=== PATIENT | male | born 1940 | race Caucasian/White ===

== ENCOUNTER 2016-06-23 05:42 | Inpatient (IN) ==
[2016-06-08 15:30] LABS: Basophils % 0.7 % (0.0-0.8); Eosinophils # 0.2 10*3/uL (0.0-0.87); Eosinophils % 4.5 % (0.00-10.9); Hematocrit 37.2 VOL% (42.0-52.0); Hemoglobin 12.9 GM/DL (14.0-18.0); Immature Granulocytes % 0.2 %; Immature Granulocytes Absolute 0.01 #; Lymphocytes # 1.6 10*3/uL (1.4-4.0); Lymphocytes % 37.6 % (21.2-54.2); Mean Corpuscular HGB Conc 34.7 GM/DL (32-36); Mean Corpuscular Hemoglobin 33 PG (27-34); Mean Corpuscular Volume 95.6 FL (87-102); Mean Platelet Volume 11.3 FL (9.6-12.0); Monocytes # 0.6 10*3/uL (0.11-0.8); Monocytes % 13.4 % (1.7-12.7); Neutrophils # 1.9 10*3/uL (1.4-7.4); Neutrophils % 43.6 % (38.7-73.9); Platelet Count 147 10*3/uL (130-400); Red Blood Count 3.89 10*6/uL (3.8-5.5); Red Cell Distribution Width 11.9 % (9.3-17.3); White Blood Count 4.3 10*3/uL (4.5-13.71)
[2016-06-08 15:41] LABS: PT Patient Result 10.6 SECS; Partial Thromboplastin Time 26.1 SECS (0-40)
[2016-06-08 15:58] LABS: Albumin 3.8 G/DL (3.4-5.0); Bilirubin,Total 0.5 MG/DL (0.2-1.0); Calcium 8.4 MG/DL (8.5-10.1); Osmolality,Calculated 293.7 MOS/KG (273-304); Potassium 4.2 MMOL/L (3.5-5.1); Total Protein 6.7 G/DL (6.4-8.3)
--- NOTE | 2016-06-08 16:00 | XRay Report ---
Exam: Chest 2 views Date: June 08, 2016 at 3:50 PM Comparison: Chest one view portable December 11, 2015 Reason: Preoperative respiratory evaluation Findings: The cardiac silhouette is normal in size, but the patient is status post sternotomy. There is minimal atelectasis or scarring at the lung bases. There is also chronic blunting of the left costophrenic angle, which may be related to scarring. No pneumothorax is identified. No acute osseous process is seen. Impression: Minimal atelectasis or scarring at the lung bases and chronic blunting of the left costophrenic angle. PROCEDURE INTERPRETED AT [facility] [place] DEPARTMENT OF RADIOLOGY Final Report Signed by: Dr. Tulio Cuenca
[2016-06-08 16:07] LABS: Apearance,Urine CLEAR (Clear); Bilirubin,Urine Negative (Negative); Blood, Urine Negative (Negative); Glucose,Urine (UA) Negative (Negative); Hyaline Casts,Urine 29 /LPF (0-3); Ketones,Urine Negative (Negative); Mucus,Urine Occasional /LPF (Occasional); Nitrite,Urine Negative (Negative); Protein,Urine Negative; RBC,Urine 1 /HPF (0-4); Squamous Epithelial Cell,Urine Occasional /HPF (0-10); Urine Color Yellow (Yellow); Urine Specific Gravity 1.025 (1.001-1.035); Urine Urobilinogen < 2.0 EU/DL (0.2-1.0); WBC,Urine 1 /HPF (0-6)
[2016-06-23] MEDS ORDERED: VANCOMYCIN INJ 1,000 MG in SODIUM CHLORIDE 0.9% 250 ML IV ONE (06:00)
[2016-06-23] MEDS ORDERED: VANCOMYCIN 1,000 MG VIAL ONE (06:10)
[2016-06-23] MEDS ORDERED: SODIUM CHLORIDE 0.9% 100 ML IV ONE (06:10)
[2016-06-23] MEDS ORDERED: ceFAZolin 1,000 MG VIAL ONE (06:10)
[2016-06-23] MEDS: LACTATED RINGERS 1,000 ML IV SCH (06:19)
[2016-06-23] MEDS ORDERED: LIDOCAINE 2% 5 ML VIAL ONE (07:06)
[2016-06-23] MEDS ORDERED: ONDANSETRON 4 MG/2 ML VIAL ONE (07:06)
[2016-06-23] MEDS ORDERED: PROPOFOL 200 MG/20 ML VIAL IV ONE (07:06)
--- NOTE | 2016-06-23 07:11 | History and Physical Update ---
History and Physical Update - History and Physical H&P was reviewed, the patient examined and there: are no changes in the patients condition since last H&P was completed.
[2016-06-23] MEDS ORDERED: HYDROmorphone 2 MG/1 ML VIAL IV PRN (07:12)
[2016-06-23] MEDS ORDERED: PROMETHAZINE 25 MG/1 ML VIAL IM PRN (07:12)
[2016-06-23] MEDS ORDERED: diphenhydrAMINE CAP 25 MG CAPSULE PO PRN (07:12)
[2016-06-23] MEDS ORDERED: ONDANSETRON 4 MG/2 ML VIAL IV PRN (07:12)
[2016-06-23] MEDS ORDERED: MAGNESIUM HYDROXIDE SUSP 30 ML UDCUP PO PRN (07:12)
[2016-06-23] MEDS ORDERED: DEXTROSE 50% 25 GM/50 ML VIAL IV PRN (07:15)
[2016-06-23] MEDS ORDERED: GLUCAGON 1 MG VIAL IM PRN (07:15)
[2016-06-23] MEDS ORDERED: TRANEXAMIC ACID 1,000 MG/10 ML VIAL IV ONE (07:36)
[2016-06-23] MEDS ORDERED: ROPIVACAINE 0.5% 30 ML VIAL ONE (08:50)
[2016-06-23] MEDS ORDERED: MIDAZOLAM 2 MG/2 ML VIAL ONE (08:50)
[2016-06-23] MEDS ORDERED: ACETAMINOPHEN 1,000 MG/100 ML VIAL IV ONE (08:50)
[2016-06-23] MEDS ORDERED: fentaNYL 100 MCG/2 ML VIAL ONE (08:50)
[2016-06-23] MEDS ORDERED: HYDROmorphone PCA 30 MG/30 ML SYRINGE IV ONE (09:35)
[2016-06-23] MEDS: HYDROmorphone PCA 30 MG/30 ML SYRINGE IV SCH (09:38)
--- NOTE | 2016-06-23 09:38 | XRay Report ---
XR knee 2V RT Indication: Knee arthroplasty Comparison: 25 April 2013 Findings: Knee arthroplasty components appear in good position. No periprosthetic fractures are seen. Postsurgical changes are present the overlying soft tissues. Impression: Knee arthroplasty appears within normal limits. PROCEDURE INTERPRETED AT [facility] DEPARTMENT OF RADIOLOGY Final Report Signed by: Dr. Wilber Reid
--- NOTE | 2016-06-23 12:46 | Anesthesia ---
Anesthesia Procedures - Nerve Blocks Main Anesthetic: spinal anesthesia block Location: PACU Position: supine Type of Block: Right: Femoral (22 g 3 1/2 needle) Patinet Consent: Patinet consented for above nerve block., Risks and benefits were discussed with patient,including infection,, bleeding,injury to surrounding structures, seizure, temporary nerve, Patient understands and accepts potential risks/benefits and agrees to, proceed. ASA Monitors on: pulse oximetry, EKG, BP cuff, oxygen via Local Anesthetic: 0.5% Ropivicaine (30cc 0.2 percent naropin ), other Ultrasound Used to: Visualize Femoral Nerve Interscalene / Femoral BLK: Visualize local anesthetic spread Nerve Stimulator used: Yes Inject slowly in 5cc increments with:: Negative aspitation of heme, Paresthesia +/= Patient vitals signs stable throughout procedure.: Patient tolertaed the procedure well with no apparent complications.
--- NOTE | 2016-06-23 13:15 | Operative Note ---
DATE: 06/23/2016 PREOPERATIVE DIAGNOSIS: OSTEOARTHRITIS, RIGHT KNEE. POSTOPERATIVE DIAGNOSIS: SAME. OPERATIVE PROCEDURE: Right total knee ([place]). SURGEON: Daniel Montanez Jr., MD MAGNETO REPAIRER: Dr. Walker ANESTHESIA: Spinal. INDICATION: A 76-year-old white male with longstanding degenerative osteoarthritis to his right kne e. He has maximized conservative treatment for a number of years, including medications and injecti ons. He presents today for elective right total knee. OPERATIVE PROCEDURE: The patient was taken to the operating room and under spinal anesthetic, the r ight lower extremity was prepped and draped in the usual sterile manner. He received Vancomycin and Ancef preoperatively. The limb was elevated, exsanguinated, and tourniquet inflated to 275 mmHg. A midline incision was made over the right knee. A medial peripatellar arthrotomy was performed. Int ramedullary alignment guide was used to make the appropriate cuts about the distal femur and proxima l tibia after revealing severe tricompartmental changes. The femur sized to a 5, the tibia to a 6. An 8-millimeter fixed bearing spacer selected. The PCL retained. The patellar resurfaced with a 38 -button. After removal of the trial components, and the knee irrigated and all three components were cemented into place. After the cement hardened, the wound was closed over two 1/8 inch Hemovac drai ns in standard fashion using #1 Vicryl for the arthrotomy, 2-0 Vicryl for the subcutaneous layer. St aples for skin. Sterile dressing was applied. Tourniquet time 37 minutes. Drains times 2. Counts c orrect. He was taken to the recovery room in stable condition.
[2016-06-23] MEDS: INSULIN REGULAR 100 UNIT/ML SUBCUT SCH ×5 (13:22→22:34)
[2016-06-23] MEDS: DOCUSATE SODIUM 100 MG CAPSULE PO SCH ×2 (13:30→22:19)
[2016-06-23] MEDS: ASPIRIN EC 81 MG TABLET PO SCH (13:31)
[2016-06-23] MEDS: glipiZIDE 10 MG TABLET PO SCH ×2 (13:31→22:18)
[2016-06-23] MEDS: valACYclovir 500 MG TABLET PO SCH (13:31)
[2016-06-23] MEDS: TAMSULOSIN 0.4 MG CAPSULE PO SCH (13:31)
[2016-06-23] MEDS: LISINOPRIL/HCTZ 20-12.5 MG TABLET PO SCH (13:32)
[2016-06-23] MEDS: GABAPENTIN 600 MG TABLET PO SCH ×3 (13:32→22:19)
[2016-06-23] MEDS: ATORVASTATIN 10 MG TABLET PO SCH (13:32)
[2016-06-23] MEDS: metFORMIN 850 MG TABLET PO SCH ×2 (13:33→21:22)
--- NOTE | 2016-06-23 14:15 | Cardiology Consult Note ---
Erick Barker April RN, am scribing for, and in the presence of, Brian Foster MD 14:15. Assessment and Plan - Time spent with patient Time spent with patient: Greater than 30 minutes (1) CAD (coronary artery disease) Status: Chronic Assessment and plan: He is clinically well compensated. Continue his usual outpatient medical management. Current Visit: No (2) History of coronary artery bypass graft Status: Chronic Assessment and plan: CABG in 2008 with ANAND to LAD and SVG to [facility]. Current Visit: No (3) Paroxysmal a-fib Status: Chronic Current Visit: No (4) Dyslipidemia Status: Chronic Assessment and plan: He takes Lipitor 10 mg dly. Current Visit: No (5) HTN (hypertension) Status: Chronic Assessment and plan: Pressures have been stable. He takes Lisinopril/HCTZ 20/12.5 dly. Current Visit: No History of Present Illness - Data of Consult Patient: known to practice within the last 3 years Consult date: 06/23/16 Requesting Physician: Daniel Montanez Jr. - Consult Narrative Reason for consult: follow postop History of present illness: Mr. Costa is a 76 year old male who is followed routinely by Dr. Jones with a history of CAD, DM, HTN, PAfib, and GERD. Past surgical history includes left knee scope, cataract surgery, back, and CABG. CABG was done in 2008 and with ANAND to LAD and SVG to [facility]. He was last cathed in 2009 with patent grafts and a patent RCA. He had a stress test done at Dr. Jones's office in May in preparation for this surgery that was read as normal with low risk for surgery. Family history includes [place] in mother and father and HTN in mother. He had right knee replacement with Dr. Montanez today. Dressing to right lower extremity dry and intact. He denies any chest pain, shortness of breath, or palpitations. He is not on telemetry, but heart sounds regular. According to vital sign chart, heart rates have been in the 60's with pressures in 110/70 range. Current Medications Acetaminophen/Hydrocodone Bitart ([place] 7.5-325) 2 tablet PO Q4H PRN PRN Reason: Moderate Pain unrelieved by 1 Acetaminophen/Hydrocodone Bitart ([place] 7.5-325) 1 tablet PO Q4H PRN PRN Reason: pain Aspirin () 81 mg PO DAILY [facility] Atorvastatin Calcium (Lipitor) 10 mg PO DAILY [facility] Dextrose/Water (D50) 25 gm IV PRN PRN PRN Reason: Hypoglycemia with IV access Diphenhydramine HCl (Benadryl Cap) 25 mg PO Q6H PRN PRN Reason: Itching Docusate Sodium (Colace Cap) 100 mg PO BID [facility] Fondaparinux (Arixtra) 2.5 mg SUBCUT Q24H [facility] Gabapentin (Neurontin Cap/Tab) 600 mg PO TID [facility] Glipizide (Glucotrol) 10 mg PO BID [facility] Glucagon () 1 mg IM PRN PRN PRN Reason: Hypoglycemia w/o IV access Lisinopril/HCTZ (Prinzide 20-12.5) 1 tablet PO DAILY [facility] Hydromorphone HCl (Dilaudid Inj) 1 mg IV Q3H PRN PRN Reason: Pain Severe (8-10) Hydromorphone/Sodium Chloride (Dilaudid Fluxer) 30 mg IV BRASS ROLLER [facility] PRN Reason: Protocol Last Admin: 06/23/16 09:38 Dose: 30 mg Lactated Ringer's (Lr) 1,000 mls @ 50 mls/hr IV .Q20H [facility] Last Admin: 06/23/16 06:19 Dose: 20 mls/hr Cefazolin Sodium/Dextrose 2, (000 mg/ Premix) 50 mls @ 100 mls/hr IV Q8H [facility] Stop: 06/23/16 23:29 Insulin Human Regular (Humulin R) 0 unit SUBCUT ACHS [facility] PRN Reason: Protocol Insulin Isophane/Insulin Regular (Humulin 70/30) 40 unit SUBCUT BEDTIME [facility] Latanoprost (Xalatan) 1 drop LEFT EYE BEDTIME [facility] Magnesium Hydroxide (Milk Of Magnesia) 30 ml PO Q6H PRN PRN Reason: Constipation Metformin HCl (Glucophage) 850 mg PO BID [facility] Ondansetron HCl (Zofran Inj) 4 mg IV Q4H PRN PRN Reason: Nausea/Vomiting Promethazine HCl (Phenergan Inj) 25 mg IM Q6H PRN PRN Reason: Nausea/Vomiting Tamsulosin HCl (Flomax) 0.4 mg PO DAILY [facility] Temazepam (Restoril) 7.5 mg PO BEDTIME PRN PRN Reason: Sleep Valacyclovir HCl (Valtrex) 500 mg PO DAILY [facility] CC: Daniel Montanez Jr., MD - Home Medications and Allergies Home Medications: Home Medications Medication Instructions Recorded Confirmed Type Aspirin [Ecotrin] 81 mg PO DAILY 12/11/15 06/23/16 History Atorvastatin [Lipitor] 10 mg PO DAILY 12/11/15 06/23/16 History Gabapentin 600 mg PO TID 12/11/15 06/23/16 History Latanoprost [Latanoprost 0.005 % 1 drop LEFT EYE BEDTIME 12/11/15 06/23/16 History Oph Soln] Lisinopril/Hydrochlorothiazide 1 tablet PO DAILY 12/11/15 06/23/16 History [Lisinopril-Hctz 20-12.5 mg Tab] Metformin HCl 850 mg PO BID 12/11/15 06/23/16 History Tamsulosin HCl 0.4 mg PO DAILY 12/11/15 06/23/16 History Valacyclovir HCl [Valacyclovir] 500 mg PO DAILY 12/11/15 06/23/16 History glipiZIDE [Glipizide] 10 mg PO BID 12/11/15 06/23/16 History HYDROcodone/ACETAMIN 7.5-325 1 tablet PO Q4H PRN #40 tablet 12/12/15 06/23/16 Rx [[place] 7.5-325] Allergies/Adverse Reactions: Allergies Allergy/AdvReac Type Severity Reaction Status Date / Time No Known Allergies Allergy Verified 06/08/16 15:23 - Constitutional Constitutional: Present: as per HPI - EENT Eyes: Present: requires corrective lense. Absent: blurry vision Ears: Absent: decreased hearing, tinnitus Nose, mouth and throat: Absent: epistaxis, neck pain - Cardiovascular Cardiovascular: Absent: chest pain at rest, chest pain with activity, dyspnea, dyspnea on exertion, edema, radiating jaw, neck or arm pain, palpitations - Respiratory Respiratory: Absent: cough, hemoptysis, dyspnea on exertion - Gastrointestinal Gastrointestinal: Absent: abdominal pain, constipation, diarrhea, hematemesis, hematochezia, nausea, vomiting - Genitourinary Genitourinary: Absent: difficulty urinating, hematuria - Musculoskeletal Musculoskeletal: Present: arthralgias. Absent: back pain - Neurological Neurological: Absent: abnormal gait, abnormal speech, confusion, dizziness, frequent falls, syncope - Psychiatric Psychiatric: Absent: anxiety, confusion - Endocrine Endocrine: Absent: fatigue - Hematologic/Lymphatic Hematologic/Lymphatic: Absent: easy bleeding, easy bruising Medical,Surgical,& Family Hx - Medical History Cardio: History of: Cardiac Dysrhythmia (PAfib), CAD, Hypertension Neurology: History of: Peripheral Neuropathy HEENT: History of: Dental Problems (FULL SET) Endocrine: History of: Diabetes Mellitus (IDDM), Dyslipidemia Rheumatology: History of;: Rheumatoid Arthritis Gastrointestinal: History of: GERD, GI Problems (ulcers) - Surgical History Cardiac Surgeries: Sugical HX of: Cardiac Catheterization (most recent 2009), Cardiac Surgery (CABG 2008 ANAND to LAD and SVG to [facility]) HEENT Surgeries: Surgical HX of: Eye Surgery (CATARACT SURGERY BILATERAL) Orthopedic Surgeries: Surgical HX of;: Spinal Surgery (back), Total Knee Replacement - Family History Family History: Reports;: Family Heart Disease (mother and father), Family Hypertension (mother) - Social History Smoking Status: Former smoker (quit 40 years ago) Have you smoked in the last 12 months: No Frequency of Alcohol Use: None Type of Drug Use: None Marital Status: Lives With:: Alone Functional capacity: independent ambulation Physical Examination Vital Signs Temp Pulse Resp BP Pulse Ox 96.8 F L 79 20 131/82 96 06/23/16 06:29 06/23/16 06:29 06/23/16 06:29 06/23/16 06:29 06/23/16 06:29 General: Present: Appears Well, No Apparent Distress HEENT: Present: Mucus Membranes Moist Neck: Present: Supple Neck, Midline Trachea, No JVD/HJR Cardiac: Present: Reg Rate and Rhythm Lungs: Present: Normal Breath Sounds. Absent: Oxygen Neuro: Absent: Essential Tremor Abdomen: Present: Soft, Active Bowel Sounds, Non-Tender. Absent: Distended Skin: Present: Clear Musculoskeletal: Present: Normal Range of Motion Gait: Present: Normal Gait Extremities: Present: Normal Gait, No Edema, Normal Upper Extr. Pulses, Normal Lower Extr. Pulses, Other (RLE is bandaged from surgery) Result/EKG - Labs CBC & BMP: 06/08/16 15:16 06/08/16 15:16 Lab Results: I have reviewed the past 24 hour labs Labs: Laboratory Results - last 24 hr 06/23/16 06/23/16 06:18 06:18 POC Glucose 218 H Blood Type O NEGATIVE Antibody Screen Negative Cristian Barker Michael, MD, personally performed the services described in this documentation, ascribed by Radha Suarez RN in my presence, and it is both accurate and complete 415 .
[2016-06-23] MEDS: ceFAZolin 2,000 MG in PREMIX 1 EACH IV SCH ×2 (15:49→22:39)
--- NOTE | 2016-06-23 17:21 | Orthopedic Progress Note ---
Orthopedics - Subjective Interval history: Comfortable good pulse block wearing off instructed up in a.m. Exam - Constitutional Vitals: Period Temp Pulse Resp BP Sys/Adamson Pulse Ox Last 24 Hr 96.8 F-97.4 F 59-87 14-20 90-136/54-82 93-98 Results - Labs CBC & BMP: 06/08/16 15:16 06/08/16 15:16
[2016-06-23] MEDS: FONDAPARINUX 2.5 MG/0.5 ML SYRINGE SUBCUT SCH (22:19)
[2016-06-23] MEDS: LATANOPROST 0.005% OPH SOLN 2.5 ML BOTTLE LEFT EYE SCH (22:19)
[2016-06-23] MEDS: INSULIN NPH/REGULAR 70/30 100 UNIT/ML SUBCUT SCH (22:31)
[2016-06-24 05:36] LABS: Basophils % 0.4 % (0.0-0.8); Eosinophils # 0.2 10*3/uL (0.0-0.87); Hematocrit 35.1 VOL% (42.0-52.0); Hemoglobin 12.2 GM/DL (14.0-18.0); Immature Granulocytes % 0.5 %; Immature Granulocytes Absolute 0.05 #; Lymphocytes % 17.8 % (21.2-54.2); Mean Corpuscular HGB Conc 34.8 GM/DL (32-36); Mean Corpuscular Hemoglobin 33 PG (27-34); Mean Corpuscular Volume 95.1 FL (87-102); Mean Platelet Volume 11.3 FL (9.6-12.0); Monocytes # 1.1 10*3/uL (0.11-0.8); Monocytes % 10.3 % (1.7-12.7); Neutrophils # 7.7 10*3/uL (1.4-7.4); Platelet Count 159 10*3/uL (130-400); Red Blood Count 3.69 10*6/uL (3.8-5.5); Red Cell Distribution Width 12.1 % (9.3-17.3); White Blood Count 11.1 10*3/uL (4.5-13.71)
[2016-06-24 06:08] LABS: Calcium 8.3 MG/DL (8.5-10.1); Osmolality,Calculated 283.5 MOS/KG (273-304); Potassium 4.5 MMOL/L (3.5-5.1)
[2016-06-24] MEDS: metFORMIN 850 MG TABLET PO SCH ×2 (08:15→21:06)
[2016-06-24] MEDS: INSULIN REGULAR 100 UNIT/ML SUBCUT SCH ×4 (08:20→21:08)
[2016-06-24] MEDS: glipiZIDE 10 MG TABLET PO SCH ×2 (08:21→21:06)
[2016-06-24] MEDS: LISINOPRIL/HCTZ 20-12.5 MG TABLET PO SCH (08:22)
[2016-06-24] MEDS: TAMSULOSIN 0.4 MG CAPSULE PO SCH (08:22)
[2016-06-24] MEDS: GABAPENTIN 600 MG TABLET PO SCH ×3 (08:22→21:06)
[2016-06-24] MEDS: ATORVASTATIN 10 MG TABLET PO SCH (08:22)
[2016-06-24] MEDS: ASPIRIN EC 81 MG TABLET PO SCH (08:22)
[2016-06-24] MEDS: DOCUSATE SODIUM 100 MG CAPSULE PO SCH ×2 (08:22→21:06)
[2016-06-24] MEDS: valACYclovir 500 MG TABLET PO SCH (08:23)
--- NOTE | 2016-06-24 08:31 | Orthopedic Progress Note ---
Orthopedics - Subjective Interval history: Pain control control somewhat difficult takes Purdy at home. Drain is removed H &H stable ready to start PT we'll give the option of oxycodone instead of Purdy today to see if we can improve his pain control. Likely to need rehabilitation placement Exam - Constitutional Vitals: Period Temp Pulse Resp BP Sys/Adamson Pulse Ox Last 24 Hr 96.8 F-98.5 F 59-88 14-20 90-165/54-82 91-98 Results - Labs CBC & BMP: 06/24/16 04:48 06/24/16 04:48 Specialty Discharge - Follow Up or Referrals Follow up with: Yunior Justice Jr., MD [Physician] - 1 Month
--- NOTE | 2016-06-24 10:20 | Anesthesia ---
Anesthesia Post OP - Post Ansesthetic Evaluation Patient seen in post op: Yes Resp: within normal limits CV: within normal limits Mental: within normal limits Temp: within normal limits Nglx-Hs-Hhyuyeyen: within normal limits Nausea and Vomiting: within normal limits Pain: within normal limits
[2016-06-24] MEDS: oxyCODONE IR 5 MG TABLET PO PRN ×2 (11:39→21:06)
--- NOTE | 2016-06-24 12:18 | Pathology Report from [facility] ---
ACCESSION # : [id number] PATIENT NAME : Trudy Costa ORDERING DR : MEGHA SALMON JR, MD CLINICAL HX: RT knee osteoarthritis POST-OP DX: Same SPECIMEN INFO: RT knee bone & tissue GROSS DESCRIPTION: The specimen is received in formalin labeled with the patient 's name and consists of an aggregate of bone, cartilage and adipose measuring 6.0 x 15.4 cm. The articular surfaces are focally degenerative with areas of bony eburnation measuring up to 1.5 cm. Torch Straightener sections submitted in one cassette. DIAGNOSIS FOR TRUDY COSTA: RIGHT KNEE BONE & TISSUE, TOTAL REPLACEMENT: Osteoarthritis. SERVICE DATE: 06/23/2016 REPORT DATE: 06/24/2016 PATHOLOGIST: Tod Muhammad M.D. [facility]
[2016-06-24] MEDS: LACTATED RINGERS 1,000 ML IV SCH (14:32)
[2016-06-24] MEDS: HYDROmorphone PCA 30 MG/30 ML SYRINGE IV SCH (14:33)
--- NOTE | 2016-06-24 17:34 | Cardiology Progress Note ---
Erick Barker April RN, am scribing for, and in the presence of, Brian Foster MD 17:32. Assessment and Plan (1) Status post total knee replacement Status: Acute Current Visit: Yes (2) CAD (coronary artery disease) Status: Chronic Assessment and plan: Heart cath done in 2009 showed patent grafts and patent RCA. Current Visit: No (3) History of coronary artery bypass graft Status: Chronic Assessment and plan: CABG in 2008 with ANAND to LAD and SVG to [facility]. Current Visit: No (4) Paroxysmal a-fib Status: Chronic Current Visit: No (5) Dyslipidemia Status: Chronic Assessment and plan: He takes Lipitor 10 mg dly. Current Visit: No (6) HTN (hypertension) Status: Chronic Current Visit: No Cardiology - PN: Subj Interval history: Resting in bed in no acute distress. He is day 1 postop right knee replacement. He is complaining of pain to his right leg, dressing to right leg dry/intact. He denies any chest pain, shortness of breath, or palpitations. Current Medications Acetaminophen/Hydrocodone Bitart ([place] 7.5-325) 2 tablet PO Q4H PRN PRN Reason: Moderate Pain unrelieved by 1 Last Admin: 06/24/16 07:04 Dose: 2 tablet Acetaminophen/Hydrocodone Bitart ([place] 7.5-325) 1 tablet PO Q4H PRN PRN Reason: pain Last Admin: 06/24/16 04:58 Dose: 1 tablet Aspirin () 81 mg PO DAILY [facility] Last Admin: 06/23/16 13:31 Dose: Not Given Atorvastatin Calcium (Lipitor) 10 mg PO DAILY [facility] Last Admin: 06/23/16 13:32 Dose: Not Given Dextrose/Water (D50) 25 gm IV PRN PRN PRN Reason: Hypoglycemia with IV access Diphenhydramine HCl (Benadryl Cap) 25 mg PO Q6H PRN PRN Reason: Itching Docusate Sodium (Colace Cap) 100 mg PO BID [facility] Last Admin: 06/23/16 22:19 Dose: 100 mg Fondaparinux (Arixtra) 2.5 mg SUBCUT Q24H [facility] Last Admin: 06/23/16 22:19 Dose: 2.5 mg Gabapentin (Neurontin Cap/Tab) 600 mg PO TID [facility] Last Admin: 06/23/16 22:19 Dose: 600 mg Glipizide (Glucotrol) 10 mg PO BID [facility] Last Admin: 06/23/16 22:18 Dose: 10 mg Glucagon () 1 mg IM PRN PRN PRN Reason: Hypoglycemia w/o IV access Lisinopril/HCTZ (Prinzide 20-12.5) 1 tablet PO DAILY [facility] Last Admin: 06/23/16 13:32 Dose: Not Given Hydromorphone HCl (Dilaudid Inj) 1 mg IV Q3H PRN PRN Reason: Pain Severe (8-10) Hydromorphone/Sodium Chloride (Dilaudid Fire Apparatus Sprinkler Inspector) 30 mg IV IN STORE REPRESENTATIVE [facility] PRN Reason: Protocol Last Admin: 06/23/16 09:38 Dose: 30 mg Lactated Ringer's (Lr) 1,000 mls @ 50 mls/hr IV .Q20H [facility] Last Admin: 06/23/16 06:19 Dose: 20 mls/hr Insulin Human Regular (Humulin R) 0 unit SUBCUT ACHS [facility] PRN Reason: Protocol Last Admin: 06/23/16 22:34 Dose: Not Given Insulin Isophane/Insulin Regular (Humulin 70/30) 40 unit SUBCUT BEDTIME [facility] Last Admin: 06/23/16 22:31 Dose: Not Given Latanoprost (Xalatan) 1 drop LEFT EYE BEDTIME [facility] Last Admin: 06/23/16 22:19 Dose: 1 drop Magnesium Hydroxide (Milk Of Magnesia) 30 ml PO Q6H PRN PRN Reason: Constipation Metformin HCl (Glucophage) 850 mg PO BID [facility] Last Admin: 06/23/16 21:22 Dose: Not Given Ondansetron HCl (Zofran Inj) 4 mg IV Q4H PRN PRN Reason: Nausea/Vomiting Promethazine HCl (Phenergan Inj) 25 mg IM Q6H PRN PRN Reason: Nausea/Vomiting Tamsulosin HCl (Flomax) 0.4 mg PO DAILY [facility] Last Admin: 06/23/16 13:31 Dose: 0.4 mg Temazepam (Restoril) 7.5 mg PO BEDTIME PRN PRN Reason: Sleep Valacyclovir HCl (Valtrex) 500 mg PO DAILY [facility] Last Admin: 06/23/16 13:31 Dose: 500 mg Exam (Progress Note) - Constitutional Vitals: Period Temp Pulse Resp BP Sys/Adamson Pulse Ox Last 24 Hr 96.8 F-98.5 F 59-88 14-20 90-165/54-82 91-98 General appearance: no acute distress - Head Head exam: Present: normal inspection - Neck Neck exam: Absent: meningismus - Respiratory Respiratory exam: Present: clear to auscultation bilaterally. Absent: accessory muscle use, chest wall tenderness - Cardiovascular Cardiovascular exam: Present: regular rate and rhythm - GI/Abdominal GI/Abdominal exam: Present: normal bowel sounds, soft. Absent: distended, tenderness - Extremities Exam Extremities exam: Present: other (dressing to rle). Absent: edema - Neurological Exam Neurological exam: Present: alert, oriented X3 - Psychiatric Psychiatric exam: Present: other (in obvious pain) - Skin Skin exam: Present: warm, dry Result/EKG - Labs CBC & BMP: 06/24/16 04:48 06/24/16 04:48 Lab Results: I have reviewed the past 24 hour labs Labs: Laboratory Results - last 24 hr 06/23/16 06/23/16 06/23/16 13:11 15:55 20:01 WBC RBC Hgb Hct MCV MCH MCHC RDW Plt Count MPV Neut % (Auto) Lymph % (Auto) Cassia % (Auto) Eos % (Auto) Baso % (Auto) Neut # (Auto) Lymph # (Auto) Cassia # (Auto) Eos # (Auto) Baso # (Auto) Immature Gran % Nucleated RBC % Immature Gran # Nucleated RBCs # Sodium Potassium Chloride Carbon Dioxide Anion Gap BUN Creatinine GFR Calculation BUN/Creatinine Ratio Glucose POC Glucose 247 H 172 H 109 H Calculated Osmolality Calcium 06/24/16 06/24/16 06/24/16 04:48 04:48 07:01 WBC 11.1 RBC 3.69 L Hgb 12.2 L Hct 35.1 L MCV 95.1 MCH 33 MCHC 34.8 RDW 12.1 Plt Count 159 MPV 11.3 Neut % (Auto) 69.0 Lymph % (Auto) 17.8 L Cassia % (Auto) 10.3 Eos % (Auto) 2.0 Baso % (Auto) 0.4 Neut # (Auto) 7.7 H Lymph # (Auto) 2.0 Cassia # (Auto) 1.1 H Eos # (Auto) 0.2 Baso # (Auto) 0.0 Immature Gran % 0.5 Nucleated RBC % 0.0 Immature Gran # 0.05 Nucleated RBCs # 0.00 Sodium 139 Potassium 4.5 Chloride 102 Carbon Dioxide 27 Anion Gap 14.5 BUN 16 Creatinine 1.20 GFR Calculation 69 BUN/Creatinine Ratio 13.00 Glucose 198 H POC Glucose 205 H Calculated Osmolality 283.5 Calcium 8.3 L - EKG EKG results: interpreted by me Specialty Discharge - Follow Up or Referrals Follow up with: Yunior Justice Jr., MD [Physician] - 1 Month I, Brian Foster MD, personally performed the services described in this documentation, ascribed by Radha Suarez RN in my presence, and it is both accurate and complete 733 .
[2016-06-24] MEDS: INSULIN NPH/REGULAR 70/30 100 UNIT/ML SUBCUT SCH (21:06)
[2016-06-24] MEDS: FONDAPARINUX 2.5 MG/0.5 ML SYRINGE SUBCUT SCH (21:07)
[2016-06-24] MEDS: LATANOPROST 0.005% OPH SOLN 2.5 ML BOTTLE LEFT EYE SCH (21:09)
[2016-06-25] MEDS: TEMAZEPAM 7.5 MG CAPSULE PO PRN ×2 (00:11→20:50)
[2016-06-25] MEDS: oxyCODONE IR 5 MG TABLET PO PRN ×3 (04:56→14:51)
[2016-06-25 06:18] LABS: Basophils % 0.2 % (0.0-0.8); Eosinophils # 0.2 10*3/uL (0.0-0.87); Eosinophils % 1.4 % (0.00-10.9); Hematocrit 35.3 VOL% (42.0-52.0); Hemoglobin 11.8 GM/DL (14.0-18.0); Immature Granulocytes % 0.6 %; Immature Granulocytes Absolute 0.08 #; Lymphocytes # 2.6 10*3/uL (1.4-4.0); Lymphocytes % 18.5 % (21.2-54.2); Mean Corpuscular HGB Conc 33.4 GM/DL (32-36); Mean Corpuscular Hemoglobin 32 PG (27-34); Mean Corpuscular Volume 96.7 FL (87-102); Mean Platelet Volume 11.5 FL (9.6-12.0); Monocytes # 1.7 10*3/uL (0.11-0.8); Monocytes % 12.1 % (1.7-12.7); Neutrophils # 9.4 10*3/uL (1.4-7.4); Neutrophils % 67.2 % (38.7-73.9); Platelet Count 182 10*3/uL (130-400); Red Blood Count 3.65 10*6/uL (3.8-5.5); Red Cell Distribution Width 12.2 % (9.3-17.3)
--- NOTE | 2016-06-25 08:01 | Orthopedic Progress Note ---
Orthopedics - Subjective Interval history: Pain control better PT going slowly will need rehabilitation. H&H stable. Blood draws. Continue supportive care. Exam - Constitutional Vitals: Period Temp Pulse Resp BP Sys/Adamson Pulse Ox Last 24 Hr 97.8 F-98.5 F 70-105 18-20 90-134/57-86 89-100 Results - Labs CBC & BMP: 06/25/16 05:26 06/24/16 04:48 Specialty Discharge - Follow Up or Referrals Follow up with: Yunior Justice Jr., MD [Physician] - 1 Month
[2016-06-25] MEDS: INSULIN REGULAR 100 UNIT/ML SUBCUT SCH ×4 (08:08→20:53)
[2016-06-25] MEDS: HYDROmorphone PCA 30 MG/30 ML SYRINGE IV SCH (08:31)
[2016-06-25] MEDS: LACTATED RINGERS 1,000 ML IV SCH (08:32)
[2016-06-25] MEDS: LISINOPRIL/HCTZ 20-12.5 MG TABLET PO SCH (09:21)
[2016-06-25] MEDS: DOCUSATE SODIUM 100 MG CAPSULE PO SCH ×2 (09:21→20:50)
[2016-06-25] MEDS: ASPIRIN EC 81 MG TABLET PO SCH (09:21)
[2016-06-25] MEDS: GABAPENTIN 600 MG TABLET PO SCH ×3 (09:21→20:50)
[2016-06-25] MEDS: valACYclovir 500 MG TABLET PO SCH (09:21)
[2016-06-25] MEDS: TAMSULOSIN 0.4 MG CAPSULE PO SCH (09:21)
[2016-06-25] MEDS: metFORMIN 850 MG TABLET PO SCH ×2 (09:22→20:51)
[2016-06-25] MEDS: glipiZIDE 10 MG TABLET PO SCH ×2 (09:22→20:50)
[2016-06-25] MEDS: ATORVASTATIN 10 MG TABLET PO SCH (09:29)
--- NOTE | 2016-06-25 14:49 | Cardiology Progress Note ---
I, Radha Suarez RN, am scribing for, and in the presence of, Brian Foster MD 14:46. Assessment and Plan (1) Status post total knee replacement Status: Acute Assessment and plan: He is doing very well status post knee replacement. His cardiac status is well compensated. I'm going to drop off of his case at this time. Please feel free to call for any cardiac related issues. Current Visit: Yes (2) CAD (coronary artery disease) Status: Chronic Assessment and plan: Heart cath done in 2009 showed patent grafts and patent RCA. Current Visit: No (3) History of coronary artery bypass graft Status: Chronic Assessment and plan: CABG in 2008 with ANAND to LAD and SVG to OMB. Current Visit: No (4) Paroxysmal a-fib Status: Chronic Current Visit: No (5) Dyslipidemia Status: Chronic Assessment and plan: He takes Lipitor 10 mg dly. Current Visit: No (6) HTN (hypertension) Status: Chronic Assessment and plan: Pressures have been stable. He takes Lisinopril/HCTZ 20/12.5 dly. Current Visit: No Cardiology - PN: Subj Interval history: Resting in bed in no acute distress. He is day 2 postop right knee replacement , dressing dry and intact. He is doing very well postoperatively. He denies any chest pain, shortness of breath, or palpitations. Current Medications Acetaminophen/Hydrocodone Bitart ([place] 7.5-325) 2 tablet PO Q4H PRN PRN Reason: Moderate Pain unrelieved by 1 Last Admin: 06/24/16 07:04 Dose: 2 tablet Acetaminophen/Hydrocodone Bitart ([place] 7.5-325) 1 tablet PO Q4H PRN PRN Reason: pain Last Admin: 06/24/16 04:58 Dose: 1 tablet Aspirin () 81 mg PO DAILY [facility] Last Admin: 06/24/16 08:22 Dose: 81 mg Atorvastatin Calcium (Lipitor) 10 mg PO DAILY [facility] Last Admin: 06/24/16 08:22 Dose: 10 mg Dextrose/Water (D50) 25 gm IV PRN PRN PRN Reason: Hypoglycemia with IV access Diphenhydramine HCl (Benadryl Cap) 25 mg PO Q6H PRN PRN Reason: Itching Docusate Sodium (Colace Cap) 100 mg PO BID [facility] Last Admin: 06/24/16 21:06 Dose: 100 mg Fondaparinux (Arixtra) 2.5 mg SUBCUT Q24H [facility] Last Admin: 06/24/16 21:07 Dose: 2.5 mg Gabapentin (Neurontin Cap/Tab) 600 mg PO TID [facility] Last Admin: 06/24/16 21:06 Dose: 600 mg Glipizide (Glucotrol) 10 mg PO BID [facility] Last Admin: 06/24/16 21:06 Dose: 10 mg Glucagon () 1 mg IM PRN PRN PRN Reason: Hypoglycemia w/o IV access Lisinopril/HCTZ (Prinzide 20-12.5) 1 tablet PO DAILY [facility] Last Admin: 06/24/16 08:22 Dose: 1 tablet Hydromorphone HCl (Dilaudid Inj) 1 mg IV Q3H PRN PRN Reason: Pain Severe (8-10) Insulin Human Regular (Humulin R) 0 unit SUBCUT ACHS [facility] PRN Reason: Protocol Last Admin: 06/25/16 08:08 Dose: Not Given Insulin Isophane/Insulin Regular (Humulin 70/30) 40 unit SUBCUT BEDTIME [facility] Last Admin: 06/24/16 21:06 Dose: 40 unit Latanoprost (Xalatan) 1 drop LEFT EYE BEDTIME [facility] Last Admin: 06/24/16 21:09 Dose: 1 drop Magnesium Hydroxide (Milk Of Magnesia) 30 ml PO Q6H PRN PRN Reason: Constipation Metformin HCl (Glucophage) 850 mg PO BID [facility] Last Admin: 06/24/16 21:06 Dose: 850 mg Ondansetron HCl (Zofran Inj) 4 mg IV Q4H PRN PRN Reason: Nausea/Vomiting Oxycodone HCl (Roxicodone) 10 mg PO Q4H PRN PRN Reason: Pain Severe (8-10) Last Admin: 06/25/16 04:56 Dose: 10 mg Promethazine HCl (Phenergan Inj) 25 mg IM Q6H PRN PRN Reason: Nausea/Vomiting Tamsulosin HCl (Flomax) 0.4 mg PO DAILY [facility] Last Admin: 06/24/16 08:22 Dose: 0.4 mg Temazepam (Restoril) 7.5 mg PO BEDTIME PRN PRN Reason: Sleep Last Admin: 06/25/16 00:11 Dose: 7.5 mg Valacyclovir HCl (Valtrex) 500 mg PO DAILY [facility] Last Admin: 06/24/16 08:23 Dose: 500 mg Exam (Progress Note) - Constitutional Vitals: Period Temp Pulse Resp BP Sys/Adamson Pulse Ox Last 24 Hr 97.8 F-98.5 F 70-105 18-20 90-134/57-86 89-100 General appearance: no acute distress - Head Head exam: Present: normal inspection - Neck Neck exam: Absent: tenderness - Respiratory Respiratory exam: Present: accessory muscle use, chest wall tenderness, other ( coarse breath sounds) - Cardiovascular Cardiovascular exam: Present: regular rate and rhythm (not on tele, but sounds regular) - GI/Abdominal GI/Abdominal exam: Present: normal bowel sounds, soft. Absent: distended, tenderness - Extremities Exam Extremities exam: Present: other (dressing to right knee). Absent: edema - Neurological Exam Neurological exam: Present: alert, oriented X3 - Psychiatric Psychiatric exam: Present: normal mood - Skin Skin exam: Present: warm, dry Result/EKG - Labs CBC & BMP: 06/25/16 05:26 06/24/16 04:48 Lab Results: I have reviewed the past 24 hour labs Labs: Laboratory Results - last 24 hr 06/24/16 06/24/16 06/24/16 11:24 15:08 19:36 WBC RBC Hgb Hct MCV MCH MCHC RDW Plt Count MPV Neut % (Auto) Lymph % (Auto) [place] % (Auto) Eos % (Auto) Baso % (Auto) Neut # (Auto) Lymph # (Auto) [place] # (Auto) Eos # (Auto) Baso # (Auto) Immature Gran % Nucleated RBC % Immature Gran # Nucleated RBCs # POC Glucose 219 H 184 H 243 H 06/25/16 06/25/16 05:26 07:11 WBC 14.0 H RBC 3.65 L Hgb 11.8 L Hct 35.3 L MCV 96.7 MCH 32 MCHC 33.4 RDW 12.2 Plt Count 182 MPV 11.5 Neut % (Auto) 67.2 Lymph % (Auto) 18.5 L [place] % (Auto) 12.1 Eos % (Auto) 1.4 Baso % (Auto) 0.2 Neut # (Auto) 9.4 H Lymph # (Auto) 2.6 [place] # (Auto) 1.7 H Eos # (Auto) 0.2 Baso # (Auto) 0.0 Immature Gran % 0.6 Nucleated RBC % 0.0 Immature Gran # 0.08 Nucleated RBCs # 0.00 POC Glucose 66 L - EKG EKG results: interpreted by me Specialty Discharge - Follow Up or Referrals Follow up with: Daniel Montanez Jr., MD [Physician] - 07/27/16 8:45 am I, Brian Foster MD, personally performed the services described in this documentation, ascribed by Radha Suarez RN in my presence, and it is both accurate and complete [id number] .
[2016-06-25] MEDS: FONDAPARINUX 2.5 MG/0.5 ML SYRINGE SUBCUT SCH (20:52)
[2016-06-25] MEDS: INSULIN NPH/REGULAR 70/30 100 UNIT/ML SUBCUT SCH (20:52)
[2016-06-25] MEDS: LATANOPROST 0.005% OPH SOLN 2.5 ML BOTTLE LEFT EYE SCH (20:57)
[2016-06-26] MEDS: TEMAZEPAM 7.5 MG CAPSULE PO PRN ×2 (01:46→22:56)
[2016-06-26] MEDS: oxyCODONE IR 5 MG TABLET PO PRN ×2 (01:46→09:02)
[2016-06-26] MEDS: INSULIN REGULAR 100 UNIT/ML SUBCUT SCH ×4 (07:42→22:52)
[2016-06-26] MEDS: valACYclovir 500 MG TABLET PO SCH (09:02)
[2016-06-26] MEDS: GABAPENTIN 600 MG TABLET PO SCH ×3 (09:02→21:23)
[2016-06-26] MEDS: ATORVASTATIN 10 MG TABLET PO SCH (09:02)
[2016-06-26] MEDS: TAMSULOSIN 0.4 MG CAPSULE PO SCH (09:02)
[2016-06-26] MEDS: LISINOPRIL/HCTZ 20-12.5 MG TABLET PO SCH (09:02)
[2016-06-26] MEDS: glipiZIDE 10 MG TABLET PO SCH ×2 (09:02→21:23)
[2016-06-26] MEDS: metFORMIN 850 MG TABLET PO SCH ×2 (09:02→21:31)
[2016-06-26] MEDS: DOCUSATE SODIUM 100 MG CAPSULE PO SCH ×2 (09:02→21:24)
[2016-06-26] MEDS: ASPIRIN EC 81 MG TABLET PO SCH (09:02)
--- NOTE | 2016-06-26 10:10 | Orthopedic Progress Note ---
Assessment and Plan (1) History of knee replacement procedure of right knee Status: Acute Assessment and plan: POD#3 right TKA, cont care: PT, pain control, dvt prophy, d/c planning Current Visit: Yes Orthopedics - Subjective Interval history: no complaints. progressing well with PT Exam - Constitutional Vitals: Period Temp Pulse Resp BP Sys/Adamson Pulse Ox Last 24 Hr 96.7 F-98.3 F 75-107 18-20 101-139/63-71 92-96 General appearance: normal weight, no acute distress - Expanded Right Lower Knee exam: Present: normal inspection (dressing c/d/i, comp soft, sensation intact, pulses 2+, cap refill brisk) Results - Labs CBC & BMP: 06/25/16 05:26 06/24/16 04:48 Lab Results: I have reviewed the past 24 hour labs Specialty Discharge - Follow Up or Referrals Follow up with: Daniel Montanez Jr., MD [Physician] - 07/27/16 8:45 am
[2016-06-26] MEDS: FONDAPARINUX 2.5 MG/0.5 ML SYRINGE SUBCUT SCH (21:25)
[2016-06-26] MEDS: LATANOPROST 0.005% OPH SOLN 2.5 ML BOTTLE LEFT EYE SCH (21:31)
[2016-06-26] MEDS: INSULIN NPH/REGULAR 70/30 100 UNIT/ML SUBCUT SCH (22:51)
[2016-06-27] MEDS: INSULIN REGULAR 100 UNIT/ML SUBCUT SCH ×4 (08:16→21:30)
[2016-06-27] MEDS: metFORMIN 850 MG TABLET PO SCH ×2 (08:21→21:46)
[2016-06-27] MEDS: GABAPENTIN 600 MG TABLET PO SCH ×3 (08:21→21:41)
[2016-06-27] MEDS: ASPIRIN EC 81 MG TABLET PO SCH (08:21)
[2016-06-27] MEDS: ATORVASTATIN 10 MG TABLET PO SCH (08:21)
[2016-06-27] MEDS: DOCUSATE SODIUM 100 MG CAPSULE PO SCH ×2 (08:22→21:43)
[2016-06-27] MEDS: valACYclovir 500 MG TABLET PO SCH (08:22)
[2016-06-27] MEDS: glipiZIDE 10 MG TABLET PO SCH ×2 (08:22→21:40)
[2016-06-27] MEDS: LISINOPRIL/HCTZ 20-12.5 MG TABLET PO SCH (08:22)
[2016-06-27] MEDS: TAMSULOSIN 0.4 MG CAPSULE PO SCH (08:22)
[2016-06-27] MEDS: oxyCODONE IR 5 MG TABLET PO PRN (08:22)
--- NOTE | 2016-06-27 11:58 | Orthopedic Progress Note ---
Assessment and Plan (1) History of knee replacement procedure of right knee Status: Acute Assessment and plan: POD#4 right TKA, cont care: PT, pain control, dvt prophy, d/c planning Current Visit: Yes Orthopedics - Subjective Interval history: pt s/e, no complaints Exam - Constitutional Vitals: Period Temp Pulse Resp BP Sys/Adamson Pulse Ox Last 24 Hr 97 F-98.7 F 76-90 16-20 87-130/56-80 92-98 - Extremities Exam Extremities exam: Present: normal inspection (RLE: dressing c/d/i, comp soft, sensation intact, cap refill brisk, calf supple. good AROM toes/ankle) Results - Labs CBC & BMP: 06/25/16 05:26 06/24/16 04:48 Specialty Discharge - Follow Up or Referrals Follow up with: Daniel Montanez Jr., MD [Physician] - 07/27/16 8:45 am
[2016-06-27] MEDS: FONDAPARINUX 2.5 MG/0.5 ML SYRINGE SUBCUT SCH (21:40)
[2016-06-27] MEDS: INSULIN NPH/REGULAR 70/30 100 UNIT/ML SUBCUT SCH (21:41)
[2016-06-27] MEDS: LATANOPROST 0.005% OPH SOLN 2.5 ML BOTTLE LEFT EYE SCH (21:43)
[2016-06-27] MEDS: TEMAZEPAM 7.5 MG CAPSULE PO PRN (21:49)
--- NOTE | 2016-06-28 08:05 | Orthopedic Progress Note ---
Orthopedics - Subjective Interval history: Comfortable. Tolerating PT well. Awaiting rehabilitation placement. Exam - Constitutional Vitals: Period Temp Pulse Resp BP Sys/Adamson Pulse Ox Last 24 Hr 96.6 F-98.2 F 86-100 16-20 84-117/58-66 92-99 Results - Labs CBC & BMP: 06/25/16 05:26 06/24/16 04:48 Specialty Discharge - Follow Up or Referrals Follow up with: Daniel Montanez Jr., MD [Physician] - 07/27/16 8:45 am
--- NOTE | 2016-06-28 08:16 | Discharge Summary ---
Hospital Course - Hospital Course Hospital Course: Admitted for elective right total knee uncomplicated course discharge to swing bed Diagnosis - Discharge Diagnosis (1) Osteoarthritis of right knee Status: Acute Specialty Discharge - Follow Up or Referrals Follow up with: Daniel Montanez Jr., MD [Physician] - 07/27/16 8:45 am Discharge Plan - Discharge Data Disposition: Swing Bed, Hos Based, [facility] Condition at Discharge: Stable Discharge Diet: advance to your usual diet Activity: as per physical therapy, increase activity as tolerated Hygiene: may shower, keep area(s) dry Weight Bearing at Discharge: weight bear as tolerated - Discharge Medications New oxyCODONE IR [Roxicodone] 10 mg PO Q4H PRN #30 tablet PRN Reason: Pain Severe (8-10) Fondaparinux [Arixtra] 2.5 mg SUBCUT Q24H syringe Continue Valacyclovir HCl [Valacyclovir] 500 mg PO DAILY Metformin HCl 850 mg PO BID Tamsulosin HCl 0.4 mg PO DAILY Gabapentin 600 mg PO TID glipiZIDE [Glipizide] 10 mg PO BID Lisinopril/Hydrochlorothiazide [Lisinopril-Hctz 20-12.5 mg Tab] 1 tablet PO DAILY Latanoprost [Latanoprost 0.005 % Oph Soln] 1 drop LEFT EYE BEDTIME Atorvastatin [Lipitor] 10 mg PO DAILY Aspirin [Ecotrin] 81 mg PO DAILY HYDROcodone/ACETAMIN 7.5-325 [[place] 7.5-325] 1 tablet PO Q4H PRN #40 tablet PRN Reason: pain - Follow Up or Referral Follow Up: Daniel Montanez Jr., MD [Physician] - 07/27/16 8:45 am - Forms/Instructions Instructions: Total Knee Replacement (DC) Additional Discharge Instructions: Discharge to swing bed continue home medications oxycodone when necessary pain activity, weight-bear as tolerated total knee protocol with CPM. Fortine to be removed and wound Steri-Stripped July 07. Follow up with me 4 weeks Exam - Constitutional Vitals: Period Temp Pulse Resp BP Sys/Adamson Pulse Ox Last 24 Hr 96.6 F-98.2 F 86-100 16-20 84-117/58-66 92-99 Discharge Results Labs on day of discharge: Labs from last 24 hours 06/28/16 06/27/16 06/27/16 06:58 21:05 16:04 POC Glucose 49 L* 293 H 151 H 06/27/16 06/27/16 12:45 08:04 POC Glucose 161 H 125 H DS: Provider Date of admission: 06/23/16 05:42 Primary care physician: . No PCP Attending physician on admission: Daniel Montanez Jr., MD Consults: 06/23/16 07:12 Consult to Case Mgmt/Social Srvs [CONS] Routine Reason for Case Mgmt/Social Srvs: Rehab Home Health Equipment Consult Comment: Bedside Commode, CPM, Walker Consult to Occupational Therapy [CONS] Routine Reason for Occupational Therapy: Evaluate and Treat Consult Comment: ADL's Consult to Physical Therapy [CONS] Routine Reason for Physical Therapy: Evaluate and Treat Gait Training 06/23/16 07:14 Consult to Physician [CONS] Routine Comment: Consulting Provider: Vasiliy Jones Consulting Provider Notified: Yes When should Consulting Provider be notified: Now Person Notified: kym called Date Notified: 06/23/16 Time Notified: 10:26 06/23/16 09:34 Consult to Pharmacy [CONS] Routine Reason for Pharmacy Consult: Adjust Meds Renal Funct Discharging clinician: Daniel Montanez Jr., MD
[2016-06-28] MEDS: INSULIN REGULAR 100 UNIT/ML SUBCUT SCH ×2 (09:54→11:58)
[2016-06-28] MEDS: metFORMIN 850 MG TABLET PO SCH (10:06)
[2016-06-28] MEDS: GABAPENTIN 600 MG TABLET PO SCH (10:06)
[2016-06-28] MEDS: ASPIRIN EC 81 MG TABLET PO SCH (10:06)
[2016-06-28] MEDS: DOCUSATE SODIUM 100 MG CAPSULE PO SCH (10:07)
[2016-06-28] MEDS: valACYclovir 500 MG TABLET PO SCH (10:07)
[2016-06-28] MEDS: glipiZIDE 10 MG TABLET PO SCH (10:07)
[2016-06-28] MEDS: ATORVASTATIN 10 MG TABLET PO SCH (10:08)
[2016-06-28] MEDS: TAMSULOSIN 0.4 MG CAPSULE PO SCH (10:08)
[2016-06-28] MEDS: LISINOPRIL/HCTZ 20-12.5 MG TABLET PO SCH (11:52)
[2016-06-28 13:50] VITALS: BP 122/77
== END 2016-06-28 15:10 | disposition swing bed (61) | DRG 470 ==
LOC: N.SDSINP 05:42 → N.3E 09:23
PROVIDERS: ADMIT Orthopaedic Surgery; ATTEND Orthopaedic Surgery

== ENCOUNTER 2016-07-14 16:26 | Inpatient (IN) ==
--- NOTE | 2016-07-14 16:52 | Emergency Department Note ---
Arrival - Arrival Chief Complaint: Abdominal / Flank Pain Stated Complaint: Abd pain ED Nursing Triage Note: Brought in by EMS-transfer from [facility] c/o RUQ pain and N/V-onset 2 days ago. Mode of Arrival: Stretcher Limitations: No Limitations Source: Patient Time Seen by Provider: 07/14/16 16:49 - History of Present Illness HPI Narrative: This 76-year-old white male presents on referral from [facility] with complaints of right upper quadrant pain, nausea, vomiting, low-grade temperature , and ultrasound at [place] consistent with cholecystitis. The patient denies a prior history of gallbladder disease, peptic ulcer disease, pancreatitis, or inflammatory bowel disease. He does have gerd and c/o increased heartburn and water brash. He is diabetic but has not had any major aberration of blood sugar on home checks. Currently he is in no medical distress. Onset (ago): day(s) (patient presents 4 days post-onset of symptoms) Consistency: constant Severity: moderate Severity scale (1-10): 5 Quality: aching Allergies/Adverse Reactions: Allergies Allergy/AdvReac Type Severity Reaction Status Date / Time No Known Allergies Allergy Unverified 07/14/16 16:34 Home Medications: Home Medications Medication Instructions Recorded Confirmed Type Aspirin [Ecotrin] 81 mg PO DAILY 12/11/15 06/23/16 History Atorvastatin [Lipitor] 10 mg PO DAILY 12/11/15 06/23/16 History Gabapentin 600 mg PO TID 12/11/15 06/23/16 History Latanoprost [Latanoprost 0.005 % 1 drop LEFT EYE BEDTIME 12/11/15 06/23/16 History Oph Soln] Lisinopril/Hydrochlorothiazide 1 tablet PO DAILY 12/11/15 06/23/16 History [Lisinopril-Hctz 20-12.5 mg Tab] Metformin HCl 850 mg PO BID 12/11/15 06/23/16 History Tamsulosin HCl 0.4 mg PO DAILY 12/11/15 06/23/16 History Valacyclovir HCl [Valacyclovir] 500 mg PO DAILY 12/11/15 06/23/16 History glipiZIDE [Glipizide] 10 mg PO BID 12/11/15 06/23/16 History HYDROcodone/ACETAMIN 7.5-325 1 tablet PO Q4H PRN #40 tablet 12/12/15 06/23/16 Rx [[place] 7.5-325] Fondaparinux [Arixtra] 2.5 mg SUBCUT Q24H syringe 06/28/16 Rx oxyCODONE IR [Roxicodone] 10 mg PO Q4H PRN #30 tablet 06/28/16 Rx Linagliptin [Tradjenta] 5 mg PO DAILY 07/14/16 History Metformin HCl [Metformin HCl] 1,000 mg PO BID 07/14/16 History Oxycodone HCl [Oxycodone HCl] 5 mg PO QID PRN 07/14/16 History Oxycodone HCl/Acetaminophen 1 tablet PO Q4H PRN 07/14/16 History [Oxycodone-Acetaminophen 10-325] Temazepam [Temazepam] 15 mg PO BEDTIME 07/14/16 History Review of System - Review of System 12 point system: reviewed and no additional remarkable complaints except as stated - Review of System Gastrointestinal: Present: as per HPI Medical,Surgical,& Family Hx - Medical History Cardio: History of: Cardiac Dysrhythmia (PAfib), CAD, Hypertension, Cardiovascular Problems (DR CERDA) Neurology: History of: Peripheral Neuropathy No history of: Seizures HEENT: History of: Eye Problem (LEFT), Dental Problems (FULL SET) Endocrine: History of: Diabetes Mellitus (IDDM), Diabetes Mellitus (NIDDM), Dyslipidemia Rheumatology: History of;: Rheumatoid Arthritis Respiratory: History of: Respiratory Problems (SOB) Genitourinary: History of: Kidney Stones, Prostate Problems Gastrointestinal: History of: GERD, GI Problems (ulcers) Musculoskeletal: History of: Back/Neck Problems - Surgical History Cardiac Surgeries: Sugical HX of: Cardiac Catheterization (most recent 2009), Cardiac Surgery (CABG) HEENT Surgeries: Surgical HX of: Eye Surgery (CATARACT SURGERY BILATERAL) Patient denies: Tonsilectomy & Adenoidectomy Abdominal Surgeries: Patient denies: Appendectomy, Cholecystectomy, Colonoscopy, EGD Orthopedic Surgeries: Surgical HX of;: Orthopedic Surgery (r tib/fib), Spinal Surgery (back), Total Knee Replacement - Family History Family History: Reports;: Family Diabetes, Family Heart Disease (mother and father), Family Hypertension (mother) - Social History Smoking Status: Never smoker Frequency of Alcohol Use: None Type of Drug Use: None Exam Physical Examination: GENERAL: Well developed, well nourished white male in no acute distress. HEENT: Normocephalic. No trauma. Moist mucous membranes. EOMI. PERRLA. NECK: Supple. No adenopathy. CARDIAC: Regular. No murmurs. CHEST: Clear to auscultation. No respiratory distress. ABDOMEN: Soft. Very tender right upper quadrant. Hypoactive bowel sounds. EXTREMITIES: No trauma. Normal ROM. No pedal edema. SKIN: No diaphoresis. No rash. NEURO: Alert. Neuro intact No focal deficits. Vital Signs: Vital Signs Temperature 97.2 F L 07/14/16 16:26 Pulse Rate 101 H 07/14/16 16:26 Respiratory Rate 18 07/14/16 16:26 Blood Pressure 148/85 07/14/16 16:26 O2 Sat by Pulse Oximetry 96 07/14/16 16:26 Course - Reevaluation(s) Reevaluation #1: Patient presents expectant of admission - Consultations Consultation #1: Patient stated consultation by Dr. johnston, surgery, who will admit for definitive the treatment. Results - Labs Labs: Lab her Thomas cardiac enzymes negative, clotting studies normal, urinalysis normal, lipase normal, sodium 136, potassium 4.8, glucose 117, creatinine 0.8, BUN 19, AST elevated, white blood cell count 6000, hematocrit 35. - Diagnostic Findings Procedure: Abdominal x-ray: image reviewed by me, report reviewed by me ( prolactins: Nonspecific gas and feces pattern.), Chest x-ray: image reviewed by me, report reviewed by me (COPD with chronic scarring, status post median sternotomy), Ultrasound: image reviewed by me, report reviewed by me (abdomen per Thomas: Gallbladder sludge with fatty liver infiltration) Disposition Clinical Impression: cholecystitis Case discussed with: patient Disposition: Still a Patient Time of Disposition: 17:56
[2016-07-14] MEDS ORDERED: ONDANSETRON 4 MG/2 ML VIAL IV STA (17:41)
[2016-07-14] MEDS ORDERED: LACTATED RINGERS 1,000 ML IV ONE (17:41)
[2016-07-14] MEDS ORDERED: HYDROmorphone 2 MG/1 ML VIAL IV STA (17:41)
[2016-07-14] MEDS ORDERED: ONDANSETRON 4 MG/2 ML VIAL ONE (17:51)
[2016-07-14] MEDS ORDERED: HYDROmorphone 2 MG/1 ML VIAL ONE (17:51)
--- NOTE | 2016-07-14 17:54 | General Surg History&Physical ---
Assessment and Plan (1) Abdominal pain Status: Acute Assessment and plan: This patient's abdominal pain seems most consistent with acute cholecystitis. He did have elevated bilirubin but no ductal dilation on his outside hospital ultrasound. We will admit him to the hospital on IV antibiotics and IV fluid resuscitation and repeat his lab work tomorrow. If his bilirubin continues to go up manually a preoperative GI consult for possible ERCP. If his direct bilirubin and alkaline phosphatase remain normal then we will proceed with laparoscopic cholecystectomy and perform a cholangiogram. I have discussed his admission with Dr. Jones I will see the patient in consultation. I believe he is a good candidate for general anesthesia and he just had a cardiac clearance prior to a knee replacement operation which he passed with no issues. However, he is having some chest pain today so we will get this looked that while he is here prior to proceeding with the operation. Current Visit: Yes (2) Abdominal pain Status: Acute Current Visit: Yes (3) Atypical chest pain Status: Acute Assessment and plan: A consult has been placed to cardiology Dr. Jones is the patient's primary top taper machine. His initial troponin and EKG was negative. We will repeat a set of cardiac enzymes on admission and again in the morning Current Visit: No History of Present Illness Chief complaint: abdominal pain History of present illness: Mr. Costa is a 76 year old male who initially presented to an outside facility in [place] with abdominal pain for 2 days duration with nausea and vomiting. The patient also developed left-sided chest pain today which she says is similar to what the pain he had prior to his CABG in 2005 which was done [address] Dr[address] Burks. He actually had a recent knee operation done here to [facility] by Dr. Montanez Lan Dr. Jones extensive cardiac workup preoperatively including a Lexiscan that demonstrated no reversible perfusion defects. It was essentially a normal study with a normal ejection fraction. The patient has been having worsening abdominal pain and he was worked up at an outside facility which demonstrated some biliary sludge with tenderness over the gallbladder. His abdominal x-ray series was negative for any acute pathology. His lab work was also fairly unremarkable. He was transferred [facility] with presumed gallbladder disease and he did have elevated bilirubin of 1.7 with a normal alkaline phosphatase and minimally elevated transaminases. His white blood cell count was normal. Home Medications Medication Instructions Recorded Confirmed Type Aspirin [Ecotrin] 81 mg PO DAILY 12/11/15 06/23/16 History Atorvastatin [Lipitor] 10 mg PO DAILY 12/11/15 06/23/16 History Gabapentin 600 mg PO TID 12/11/15 06/23/16 History Latanoprost [Latanoprost 0.005 % 1 drop LEFT EYE BEDTIME 12/11/15 06/23/16 History Oph Soln] Lisinopril/Hydrochlorothiazide 1 tablet PO DAILY 12/11/15 06/23/16 History [Lisinopril-Hctz 20-12.5 mg Tab] Metformin HCl 850 mg PO BID 12/11/15 06/23/16 History Tamsulosin HCl 0.4 mg PO DAILY 12/11/15 06/23/16 History Valacyclovir HCl [Valacyclovir] 500 mg PO DAILY 12/11/15 06/23/16 History glipiZIDE [Glipizide] 10 mg PO BID 12/11/15 06/23/16 History HYDROcodone/ACETAMIN 7.5-325 1 tablet PO Q4H PRN #40 tablet 12/12/15 06/23/16 Rx [[place] 7.5-325] Fondaparinux [Arixtra] 2.5 mg SUBCUT Q24H syringe 06/28/16 Rx oxyCODONE IR [Roxicodone] 10 mg PO Q4H PRN #30 tablet 06/28/16 Rx Linagliptin [Tradjenta] 5 mg PO DAILY 07/14/16 History Metformin HCl [Metformin HCl] 1,000 mg PO BID 07/14/16 History Oxycodone HCl [Oxycodone HCl] 5 mg PO QID PRN 07/14/16 History Oxycodone HCl/Acetaminophen 1 tablet PO Q4H PRN 07/14/16 History [Oxycodone-Acetaminophen 10-325] Temazepam [Temazepam] 15 mg PO BEDTIME 07/14/16 History Allergies Allergy/AdvReac Type Severity Reaction Status Date / Time No Known Allergies Allergy Unverified 07/14/16 16:34 Medical,Surgical,& Family Hx - Medical History Cardio: History of: Cardiac Dysrhythmia (PAfib), CAD, Hypertension, Cardiovascular Problems (DR JONES) Neurology: History of: Peripheral Neuropathy No history of: Seizures HEENT: History of: Eye Problem (LEFT), Dental Problems (FULL SET) Endocrine: History of: Diabetes Mellitus (IDDM), Diabetes Mellitus (NIDDM), Dyslipidemia Rheumatology: History of;: Rheumatoid Arthritis Respiratory: History of: Respiratory Problems (SOB) Genitourinary: History of: Kidney Stones, Prostate Problems Gastrointestinal: History of: GERD, GI Problems (ulcers) Musculoskeletal: History of: Back/Neck Problems - Surgical History Cardiac Surgeries: Sugical HX of: Cardiac Catheterization (most recent 2009), Cardiac Surgery (CABG) HEENT Surgeries: Surgical HX of: Eye Surgery (CATARACT SURGERY BILATERAL) Patient denies: Tonsilectomy & Adenoidectomy Abdominal Surgeries: Patient denies: Appendectomy, Cholecystectomy, Colonoscopy, EGD Orthopedic Surgeries: Surgical HX of;: Orthopedic Surgery (r tib/fib), Spinal Surgery (back), Total Knee Replacement - Family History Family History: Reports;: Family Diabetes, Family Heart Disease (mother and father), Family Hypertension (mother) - Social History Smoking Status: Never smoker Frequency of Alcohol Use: None Type of Drug Use: None Exam - Constitutional Vitals: Period Temp Pulse Resp BP Sys/Adamson Pulse Ox Last 24 Hr 97.2 F 101 18 148/85 96 General appearance: normal weight, no acute distress - Head Head exam: Present: normal inspection, normocephalic - Eye Eye exam: Present: EOMI Pupils: Present: RADHA - ENT ENT exam: Present: normal exam Mouth exam: Present: normal external inspection, normal voice - Neck Neck exam: Present: normal inspection, trachea midline - Respiratory Respiratory exam: Present: clear to auscultation bilaterally. Absent: accessory muscle use, chest wall tenderness - Cardiovascular Cardiovascular exam: Present: tachycardia. Absent: irregular rhythm, systolic murmur - GI/Abdominal GI/Abdominal exam: Present: normal bowel sounds, guarding, Abdullahi's sign, tenderness, soft. Absent: distended, mass - Extremities Exam Extremities exam: Present: normal inspection, normal capillary refill - Back Exam Back exam: Present: normal inspection - Neurological Exam Neurological exam: Present: alert, oriented X3 Speech: Present: normal - Skin Skin exam: Present: normal color, warm - Constitutional Constitutional: Present: as per HPI - EENT Nose, mouth and throat: Present: as per HPI - Cardiovascular Cardiovascular: Present: as per HPI - Respiratory Respiratory: Present: as per HPI - Gastrointestinal Gastrointestinal: Present: as per HPI - Genitourinary Genitourinary: Present: as per HPI - Musculoskeletal Musculoskeletal: Present: as per HPI - Neurological Neurological: Present: as per HPI - Endocrine Endocrine: Present: as per HPI Hematologic/Lymphatic: Present: as per HPI Results - EKG EKG results: sinus rhythm, no acute changes - Diagnostic Findings Procedure: Chest x-ray: report reviewed by me, KUB x-ray: report reviewed by me , Ultrasound: report reviewed by me
--- NOTE | 2016-07-14 19:52 | Cardiology Consult Note ---
History of Present Illness - Data of Consult Patient: known to practice within the last 3 years - Consult Narrative History of present illness: Cardiac consult 76-year-old man transferred from [facility] with probable acute cholecystitis. Patient has been having abdominal pain and nausea for the past 4 days. Total bili is 1.7. Mildly elevated LFTs. Normal white count. Currently on IV fluids and IV antibiotics. Abdominal x-ray was negative. Status post right total knee replacemen June 23, [address] Moises Montanez . He had a normal Lexiscan Cardiolite stress test preoperatively with ejection fraction 61%. Patient status post two-vessel CABG August 22, 2008 with ANAND graft to LAD and vein graft to the obtuse marginal branch. Status post repeat cath January 13, 2010 which showed patent ANAND graft, patent OM vein graft, and patent [place] right coronary with normal EF. Patient has chronic hypertension takes lisinopril HCT 20/12.5 daily. He does have hyperlipidemia and takes Lipitor 20 mg daily. Patient type II diabetic and takes metformin 850 mg twice daily, Tradjenta 5 mg daily and glipizide 10 mg twice daily. He is 5 feet 9 inches tall and weighs 171 pounds. His weight is been stable. He quit smoking 15 years ago. He does not drink any alcohol. He does have BPH symptoms takes Flomax 0.4 mg daily. He has chronic arthritic complaints and takes [place] 7.5 mg /325 mg every 6 hours as needed. He is also currently on Arixtra 2.5 mg daily following his knee replacement June 23. The patient is a . His Aubree 2 years ago. EGD done December [address] Palm showed 2 gastric ulcers small hiatal hernia and a distal esophageal stricture which was dilated. He denies difficulty swallowing at this time. Blood pressure 150/86. Pulse is 98 and regular O2 sat 96% on room air. Bilateral arcus. No xanthelasma. No carotid bruit. Clear lungs. Regular rhythm. No murmur or gallop. Abdomen is tender in the right upper quadrant. Bowel sounds are active. Femoral pulses 2+ without bruit. Distal pulses are 2+. The right knee scar is healing nicely. Mild swelling. Wound edges are well approximated. Impression Acute cholecystitis Status post two-vessel CABG August 22, 2008 with ANAND graft to LAD and vein graft to OM branch Normal Lexiscan cardiac stress test June 2016 EF 61% Status post right total knee replacement June 23, [address] Moises Montanez without difficulty Currently on Arixtra 2.5 mg daily Chronic hypertension Type 2 diabetes Remote tobacco abuse EGD December 29, 2015 showed 2 gastric ulcers, hiatal hernia, and distal esophageal stricture which was dilated Plan IV fluids and IV antibiotics Stable cardiac status okay to proceed with ERCP/sphincterotomy or lap ankit as indicated. Will follow with you EKG today and postop Analgesics as needed CC: Fox Bradshaw MD - Home Medications and Allergies Home Medications: Home Medications Medication Instructions Recorded Confirmed Type Aspirin [Ecotrin] 81 mg PO DAILY 12/11/15 07/14/16 History Atorvastatin [Lipitor] 10 mg PO DAILY 12/11/15 07/14/16 History Gabapentin 600 mg PO TID 12/11/15 07/14/16 History Latanoprost [Latanoprost 0.005 % 1 drop LEFT EYE BEDTIME 12/11/15 07/14/16 History Oph Soln] Lisinopril/Hydrochlorothiazide 1 tablet PO DAILY 12/11/15 07/14/16 History [Lisinopril-Hctz 20-12.5 mg Tab] Metformin HCl 850 mg PO BID 12/11/15 07/14/16 History Tamsulosin HCl 0.4 mg PO DAILY 12/11/15 07/14/16 History Valacyclovir HCl [Valacyclovir] 500 mg PO DAILY 12/11/15 07/14/16 History glipiZIDE [Glipizide] 10 mg PO BID 12/11/15 07/14/16 History Magnesium Hydroxide [Milk of 2,400 mg PO DAILY PRN 07/14/16 07/14/16 History Magnesia] Omeprazole [Omeprazole] 40 mg PO DAILY 07/14/16 07/14/16 History Oxycodone HCl/Acetaminophen 2 tablet PO Q6H PRN 07/14/16 07/14/16 History [Oxycodone-Acetaminophen 10-325] Temazepam [Temazepam] 15 mg PO BEDTIME 07/14/16 07/14/16 History Allergies/Adverse Reactions: Allergies Allergy/AdvReac Type Severity Reaction Status Date / Time No Known Allergies Allergy Unverified 07/14/16 16:34 Medical,Surgical,& Family Hx - Medical History Cardio: History of: Cardiac Dysrhythmia (PAfib), CAD, Hypertension, Cardiovascular Problems (DR CERDA) Neurology: History of: Peripheral Neuropathy No history of: Seizures HEENT: History of: Eye Problem (LEFT), Dental Problems (FULL SET) Endocrine: History of: Diabetes Mellitus (IDDM), Diabetes Mellitus (NIDDM), Dyslipidemia Rheumatology: History of;: Rheumatoid Arthritis Respiratory: History of: Respiratory Problems (SOB) Genitourinary: History of: Kidney Stones, Prostate Problems Gastrointestinal: History of: GERD, GI Problems (ulcers) Musculoskeletal: History of: Back/Neck Problems - Surgical History Cardiac Surgeries: Sugical HX of: Cardiac Catheterization (most recent 2009), Cardiac Surgery (CABG) HEENT Surgeries: Surgical HX of: Eye Surgery (CATARACT SURGERY BILATERAL) Patient denies: Tonsilectomy & Adenoidectomy Abdominal Surgeries: Patient denies: Appendectomy, Cholecystectomy, Colonoscopy, EGD Orthopedic Surgeries: Surgical HX of;: Orthopedic Surgery (r tib/fib), Spinal Surgery (back), Total Knee Replacement - Family History Family History: Reports;: Family Diabetes, Family Heart Disease (mother and father), Family Hypertension (mother) - Social History Smoking Status: Never smoker Frequency of Alcohol Use: None Type of Drug Use: None Physical Examination Vital Signs Temp Pulse Resp BP Pulse Ox 97.2 F L 101 H 18 148/85 96 07/14/16 16:26 07/14/16 16:26 07/14/16 16:26 07/14/16 16:26 07/14/16 16:26
[2016-07-14] MEDS ORDERED: HYDROmorphone 2 MG/1 ML VIAL IV PRN (20:11)
[2016-07-14] MEDS ORDERED: ACETAMINOPHEN 325 MG TABLET PO PRN (20:11)
[2016-07-14] MEDS ORDERED: ONDANSETRON 4 MG/2 ML VIAL IV PRN (20:11)
[2016-07-14] MEDS ORDERED: PIPERACILLIN/TAZOBACTAM 3,375 MG in SODIUM CHLORIDE 0.9% 100 ML IV STA (20:11)
[2016-07-14] MEDS: LACTATED RINGERS 1,000 ML IV SCH (21:11)
[2016-07-14] MEDS: GABAPENTIN 600 MG TABLET PO SCH (21:16)
[2016-07-14] MEDS: TEMAZEPAM 15 MG CAPSULE PO SCH (21:16)
[2016-07-14] MEDS: LATANOPROST 0.005% OPH SOLN 2.5 ML BOTTLE LEFT EYE SCH (22:53)
[2016-07-15] MEDS: PIPERACILLIN/TAZOBACTAM 3,375 MG in SODIUM CHLORIDE 0.9% 100 ML IV SCH ×2 (04:50→14:18)
[2016-07-15] MEDS: LACTATED RINGERS 1,000 ML IV SCH ×4 (04:51→17:22)
--- NOTE | 2016-07-15 06:44 | EKG Report ---
Stationary ECG Study [facility] Test Date: 07/14/2016 11:18:47 PM Pat Name: PEBBLES HAM Department: Room: 339 Gender: M Aircrewman: WINNIE : 1940 Requested by: Fox Bradshaw Order Number: [id number] Reading MD: MARVIN CERDA Intervals [place] Rate: 93 P: 68 VT: 199 QRS: 41 QRSD: 79 T: 99 QT: 336 QTc: 387 Interpretive Statements SINUS RHYTHM Electronically Signed On 07-15-16 19:07:16 DROP MACHINE OPERATOR by MARVIN CERDA [email or web address]
[2016-07-15] MEDS ORDERED: PANTOPRAZOLE 40 MG TABLET PO SCH (09:00)
[2016-07-15] MEDS: GABAPENTIN 600 MG TABLET PO SCH ×3 (09:18→22:12)
[2016-07-15] MEDS: ASPIRIN EC 81 MG TABLET PO SCH (09:18)
[2016-07-15] MEDS: valACYclovir 500 MG TABLET PO SCH (09:18)
[2016-07-15] MEDS: ATORVASTATIN 10 MG TABLET PO SCH (09:18)
[2016-07-15] MEDS: TAMSULOSIN 0.4 MG CAPSULE PO SCH (09:18)
[2016-07-15 09:49] LABS: Basophils % 0.8 % (0.0-0.8); Eosinophils # 0.1 10*3/uL (0.0-0.87); Eosinophils % 1.3 % (0.00-10.9); Hematocrit 35.7 VOL% (42.0-52.0); Hemoglobin 12.1 GM/DL (14.0-18.0); Immature Granulocytes % 0.4 %; Immature Granulocytes Absolute 0.02 #; Lymphocytes # 1.2 10*3/uL (1.4-4.0); Lymphocytes % 23.1 % (21.2-54.2); Mean Corpuscular HGB Conc 33.9 GM/DL (32-36); Mean Corpuscular Hemoglobin 33 PG (27-34); Mean Corpuscular Volume 96.5 FL (87-102); Mean Platelet Volume 10.3 FL (9.6-12.0); Monocytes # 0.5 10*3/uL (0.11-0.8); Monocytes % 9.2 % (1.7-12.7); Neutrophils # 3.4 10*3/uL (1.4-7.4); Neutrophils % 65.2 % (38.7-73.9); Platelet Count 330 T/CUMM (130-400); Red Cell Distribution Width 13.2 % (9.3-17.3); White Blood Count 5.2 T/CUMM (4-12)
[2016-07-15 10:03] LABS: INR 1.1; PT Patient Result 11.8 SECS; Partial Thromboplastin Time 26.3 SECS (0-40)
[2016-07-15 10:13] LABS: Calcium 9.3 MG/DL (8.5-10.1); Osmolality,Calculated 285.4 MOS/KG (273-304); Potassium 4.6 MMOL/L (3.5-5.1)
[2016-07-15 12:24] LABS: Albumin 3.5 G/DL (3.4-5.0); Bilirubin,Direct 0.3 MG/DL (0.0-0.20); Bilirubin,Indirect 0.8 MG/DL (0.0-1.0); Bilirubin,Total 1.1 MG/DL (0.2-1.0)
[2016-07-15] MEDS ORDERED: TISSUE ADHESIVE 1 EACH APPLICATOR TOP ONE (13:16)
[2016-07-15] MEDS ORDERED: LIDOCAINE 1%/EPI INJ 20 ML VIAL ONE (13:16)
[2016-07-15] MEDS ORDERED: ONDANSETRON 4 MG/2 ML VIAL ONE (14:00)
[2016-07-15] MEDS ORDERED: LIDOCAINE 2% 5 ML VIAL ONE (14:00)
[2016-07-15] MEDS ORDERED: ROCURONIUM 100 MG/10 ML VIAL IV ONE (14:00)
[2016-07-15] MEDS ORDERED: NEOSTIGMINE 10 MG/10 ML VIAL ONE (14:00)
[2016-07-15] MEDS ORDERED: PROPOFOL 200 MG/20 ML VIAL IV ONE (14:00)
[2016-07-15] MEDS ORDERED: GLYCOPYRROLATE 0.4 MG/2 ML VIAL ONE (14:00)
--- NOTE | 2016-07-15 14:58 | Operative Note ---
Date of procedure: 07/15/16 Pre-op diagnosis: acute cholecystitis Post-op diagnosis: same Procedure: Preoperative diagnosis Acute cholecystitis Postoperative diagnosis Same Procedures performed Laparoscopic cholecystectomy with intraoperative cholangiogram Fluoroscopic guidance and interpretation of images Findings Cannulation of the cystic duct was obtained and there is a little bit of kinking in the distal common bile duct I did not see any discrete stone disease. Brisk flow into the duodenum occurred and intrahepatic biliary radicles were visualized. The patient did have some macronodular cirrhosis of the liver and pictures were taken and put in the chart. There was no other pathology seen on diagnostic laparoscopy. There is no evidence of inflammation in the stomach of the duodenum in the first portion. Blood loss 10 mL Anesthesia GETA Indications Acute cholecystitis with abnormal LFTs Complications None apparent Description of procedure The patient was taken to the operating room and transferred to the operating table in the supine position. Pressure points were padded and SCDs were placed the bilateral lower extremities. General endotracheal anesthesia was administered. The abdomen was prepped with chlorhexidine and draped sterilely. Preoperative antibiotics were administered, and a timeout was performed. The abdomen is entered in a supraumbilical location with a Veress needle. A 5 mm skin incision was made with a 11 blade scalpel and a penetrating towel clip was used to grasp the umbilical stalk. A Veress needle was used to enter the peritoneal cavity confirmed by double click technique. Aspiration was negative. Saline drop test confirmed intraperitoneal location. The abdomen was insufflated to 15 mmHg with an initial insufflation pressure of -2 mmHg. The Veress needle was removed and a 5 mm trocar was placed blindly. The diagnostic laparoscopy was performed and there was no evidence of Veress needle or trocar injury. There is acute inflammation around the gallbladder but the stomach and first portion of the duodenum appeared normal with no inflammation. There was no bile or significant fluid in the abdomen. The liver had evidence of macronodular cirrhosis Under direct visualization, and after local anesthetic was administered, a 11 mm midepigastric trocar and 2 right subcostal 5 mm trochars were placed. The gallbladder was grasped at the fundus and infundibulum. The cystic plate peritoneum was dissected until the critical view of safety was obtained. The cystic duct was clipped laterally and a cystic ductotomy was made. A cholangiogram catheter was inserted into the cystic duct and secured with a clip. The cholangiogram revealed some kinking of the distal common bile duct just prior to its insertion with the pancreatic duct but there was no obvious meniscus sign or stone filling defects. There was good visualization of the biliary radicles in the liver. Cystic duct remnant placement was confirmed. The cholangiogram catheter was removed and the cystic duct and cystic artery were clipped twice centrally and once laterally and divided laparoscopically with scissors between clips. The gallbladder was removed from the gallbladder fossa using the hook electrocautery. The gallbladder was placed in an Endo Catch bag and removed through the midepigastric trocar site. The abdomen was evacuated and suction irrigated until the effluent was clear and there was no bleeding from the liver bed. The CO2 was released from the abdomen and the trochars were removed. The skin incisions were closed with 4-0 Monocryl sutures and sterile skin glue was placed. The patient was awakened from anesthesia and transferred to recovery. Postoperative plan Repeat labs in the morning Discharge home tomorrow Anesthesia: MIKKIA, local Surgeon / Physician: Fox Bradshaw Specimens: other (gallbladder) Condition: stable Disposition: PACU Results - Labs CBC & BMP: 07/15/16 09:21 07/15/16 09:21 Discharge Plan - Discharge Medications No Action Valacyclovir HCl [Valacyclovir] 500 mg PO DAILY Metformin HCl 850 mg PO BID Tamsulosin HCl 0.4 mg PO DAILY Gabapentin 600 mg PO TID glipiZIDE [Glipizide] 10 mg PO BID Lisinopril/Hydrochlorothiazide [Lisinopril-Hctz 20-12.5 mg Tab] 1 tablet PO DAILY Latanoprost [Latanoprost 0.005 % Oph Soln] 1 drop LEFT EYE BEDTIME Atorvastatin [Lipitor] 10 mg PO DAILY Aspirin [Ecotrin] 81 mg PO DAILY Oxycodone HCl/Acetaminophen [Oxycodone-Acetaminophen 10-325] 2 tablet PO Q6H PRN PRN Reason: Pain Magnesium Hydroxide [Milk of Magnesia] 2,400 mg PO DAILY PRN PRN Reason: Constipation Temazepam [Temazepam] 15 mg PO BEDTIME Omeprazole [Omeprazole] 40 mg PO DAILY - Follow Up or Referral - Forms/Instructions
[2016-07-15] MEDS ORDERED: SEVOFLURANE 1 UNIT/15 MINUTE INH ONE (15:03)
[2016-07-15] MEDS ORDERED: fentaNYL 100 MCG/2 ML VIAL ONE (15:03)
[2016-07-15] MEDS ORDERED: MIDAZOLAM 2 MG/2 ML VIAL ONE (15:03)
--- NOTE | 2016-07-15 15:17 | Anesthesia ---
Anesthesia Post OP - Post Ansesthetic Evaluation Patient seen in post op: Yes Resp: within normal limits CV: within normal limits Mental: within normal limits Temp: within normal limits [id number]: within normal limits Nausea and Vomiting: within normal limits Pain: within normal limits
--- NOTE | 2016-07-15 16:09 | Fluoroscopy Report ---
FL cholangiogram in surgery Indication: Cholecystectomy. Intraoperative cholangiogram: Cholangiogram performed via cystic duct remnant injection shows prompt spillage of contrast small bowel as well as opacification of the pancreatic duct centrally. There are some irregularity to the distal CBD just above the ampulla which has a "shouldered" type appearance concerning for infiltrative process. No duct dilatation or filling defects are seen. Contrast reflux into the hepatic radicles is satisfactory and unremarkable. Impression: 1. No retained stones or duct dilatation is seen. 2. Irregular appearing narrowing of the distal CBD, either benign stricture or neoplastic process. Consider ERCP. PROCEDURE INTERPRETED AT [facility] DEPARTMENT OF RADIOLOGY Final Report Signed by: Gurpreet Cedillo M.D.
--- NOTE | 2016-07-15 16:12 | Cardiology Progress Note ---
Cardiology - PN: Subj Interval history: Cardiology note. 76-year-old man status post laparoscopically cystectomy today for acute cholecystitis Liver demonstrated macronodular cirrhosis Patient alert and responsive blood pressure 118/70 Decreased breath sounds but clear Regular rhythm no gallop Wound clean and dry. No oozing. Impression Status post laparoscopic cholecystectomy today Macronodular cirrhosis Normal Lexiscan Cardiolite stress test June 2016 Status post two-vessel CABG 2008 Diabetes EGD December 29, 2015 showed 2 gastric ulcers, hiatal hernia and distal esophageal stricture which was dilated Plan Analgesics as needed Routine postop care IV antibiotics EKG Exam (Progress Note) - Constitutional Vitals: Period Temp Pulse Resp BP Sys/Adamson Pulse Ox Last 24 Hr 98 F-98.6 F 65-108 18-22 108-168/57-103 93-100 Result/EKG - Labs CBC & BMP: 07/15/16 09:21 07/15/16 09:21 Labs: Laboratory Results - last 24 hr 07/15/16 07/15/16 07/15/16 09:21 09:21 09:21 WBC 5.2 RBC 3.70 L Hgb 12.1 L Hct 35.7 L MCV 96.5 MCH 33 MCHC 33.9 RDW 13.2 Plt Count 330 MPV 10.3 Neut % (Auto) 65.2 Lymph % (Auto) 23.1 [place] % (Auto) 9.2 Eos % (Auto) 1.3 Baso % (Auto) 0.8 Neut # (Auto) 3.4 Lymph # (Auto) 1.2 L [place] # (Auto) 0.5 Eos # (Auto) 0.1 Baso # (Auto) 0.0 Immature Gran % 0.4 Nucleated RBC % 0.0 Immature Gran # 0.02 Nucleated RBCs # 0.00 INR 1.1 PT Patient/Control Mix 11.8 Circ Anticoag PTT 26.3 Sodium 140 Potassium 4.6 Chloride 100 Carbon Dioxide 30 Anion Gap 14.6 BUN 12 Creatinine 1.10 GFR Calculation 72 BUN/Creatinine Ratio 10.00 Glucose 219 H Calculated Osmolality 285.4 Calcium 9.3 Total Bilirubin Direct Bilirubin Indirect Bilirubin AST ALT Alkaline Phosphatase Total Protein Albumin Lipase 07/15/16 11:34 WBC RBC Hgb Hct MCV MCH MCHC RDW Plt Count MPV Neut % (Auto) Lymph % (Auto) [place] % (Auto) Eos % (Auto) Baso % (Auto) Neut # (Auto) Lymph # (Auto) [place] # (Auto) Eos # (Auto) Baso # (Auto) Immature Gran % Nucleated RBC % Immature Gran # Nucleated RBCs # INR PT Patient/Control Mix Circ Anticoag PTT Sodium Potassium Chloride Carbon Dioxide Anion Gap BUN Creatinine GFR Calculation BUN/Creatinine Ratio Glucose Calculated Osmolality Calcium Total Bilirubin 1.10 H Direct Bilirubin 0.3 H Indirect Bilirubin 0.8 AST 22 ALT 23 Alkaline Phosphatase 79 Total Protein 7.0 Albumin 3.5 Lipase 222.0
[2016-07-15] MEDS ORDERED: ONDANSETRON 4 MG/2 ML VIAL IV PRN (16:20)
[2016-07-15] MEDS ORDERED: PROMETHAZINE 25 MG/1 ML VIAL IM PRN (16:20)
[2016-07-15] MEDS ORDERED: GLUCAGON 1 MG VIAL IM PRN (16:20)
[2016-07-15] MEDS ORDERED: DEXTROSE 50% 25 GM/50 ML VIAL IV PRN (16:20)
[2016-07-15] MEDS ORDERED: HYDROmorphone 2 MG/1 ML VIAL IV PRN (16:20)
--- NOTE | 2016-07-15 16:27 | EKG Report ---
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
[2016-07-15] MEDS: KETOROLAC 15 MG/1 ML VIAL IV SCH ×2 (16:51→22:12)
[2016-07-15] MEDS: KETOROLAC 10 MG TABLET PO SCH (17:10)
[2016-07-15] MEDS: INSULIN REGULAR 100 UNIT/ML SUBCUT SCH ×2 (17:20→22:50)
[2016-07-15] MEDS ORDERED: ZALEPLON 5 MG CAPSULE PO PRN (21:42)
[2016-07-15] MEDS: LATANOPROST 0.005% OPH SOLN 2.5 ML BOTTLE LEFT EYE SCH (22:11)
[2016-07-15] MEDS: TEMAZEPAM 15 MG CAPSULE PO SCH (22:12)
[2016-07-16] MEDS: LACTATED RINGERS 1,000 ML IV SCH (01:08)
[2016-07-16] MEDS: KETOROLAC 15 MG/1 ML VIAL IV SCH ×2 (04:07→09:21)
[2016-07-16 06:26] LABS: Basophils % 0.3 % (0.0-0.8); Eosinophils # 0.1 10*3/uL (0.0-0.87); Eosinophils % 1.3 % (0.00-10.9); Hematocrit 34.8 VOL% (42.0-52.0); Immature Granulocytes % 0.3 %; Immature Granulocytes Absolute 0.03 #; Lymphocytes # 2.4 10*3/uL (1.4-4.0); Lymphocytes % 26.5 % (21.2-54.2); Mean Corpuscular HGB Conc 34.5 GM/DL (32-36); Mean Corpuscular Hemoglobin 33 PG (27-34); Mean Corpuscular Volume 94.8 FL (87-102); Mean Platelet Volume 10.5 FL (9.6-12.0); Monocytes # 0.8 10*3/uL (0.11-0.8); Monocytes % 8.9 % (1.7-12.7); Neutrophils # 5.6 10*3/uL (1.4-7.4); Neutrophils % 62.7 % (38.7-73.9); Platelet Count 341 T/CUMM (130-400); Red Blood Count 3.67 MC/CUMM (3.8-5.5); Red Cell Distribution Width 13.2 % (9.3-17.3)
[2016-07-16 07:00] LABS: Albumin 3.4 G/DL (3.4-5.0); Bilirubin,Total 1.6 MG/DL (0.2-1.0); Calcium 9.1 MG/DL (8.5-10.1); Osmolality,Calculated 278.4 MOS/KG (273-304); Potassium 4.2 MMOL/L (3.5-5.1); Total Protein 6.5 G/DL (6.4-8.3)
--- NOTE | 2016-07-16 07:05 | Event Note ---
General Surgery Progress Note Chief complaint This patient is a 76-year-old man admitted with cholecystitis and abnormal LFTs dilated bile duct treated with laparoscopic cholecystectomy with cholangiogram revealing possible distal common bile duct stricture on 07/15/2016 Interval history Patient is doing well today. Hemoglobin is stable. His repeat LFTs are pending today. He is tolerating his diet and his pain is well-controlled. Physical exam Afebrile with normal vital signs Abdominal exam with expected postoperative tenderness and normal bowel sounds Labs Hemoglobin is stable at 12 LFTs are pending Assessment and plan Follow-up LFTs today. The patient can be discharged home and we will arrange for outpatient imaging which I'll discuss with his supervisor printing and stamping to further delineate the cause or presence of a common bile duct stricture.
[2016-07-16] MEDS ORDERED: ENOXAPARIN 40 MG/0.4 ML SYRINGE SUBCUT SCH (08:49)
[2016-07-16] MEDS ORDERED: PANTOPRAZOLE 40 MG VIAL IV SCH (09:00)
[2016-07-16] MEDS: TAMSULOSIN 0.4 MG CAPSULE PO SCH (09:21)
[2016-07-16] MEDS: valACYclovir 500 MG TABLET PO SCH (09:21)
[2016-07-16] MEDS: GABAPENTIN 600 MG TABLET PO SCH (09:21)
[2016-07-16] MEDS: ATORVASTATIN 10 MG TABLET PO SCH (09:21)
[2016-07-16] MEDS: ASPIRIN EC 81 MG TABLET PO SCH (09:22)
[2016-07-16] MEDS: INSULIN REGULAR 100 UNIT/ML SUBCUT SCH ×2 (09:24→13:07)
--- NOTE | 2016-07-16 12:47 | Pathology Report from [facility] ---
ACCESSION # : [id number] PATIENT NAME : Trudy Costa ORDERING DR : Fox Bradshaw MD CLINICAL HX: Acute cholecystitis POST-OP DX: Same SPECIMEN INFO: Gallbladder GROSS DESCRIPTION: The specimen is received in formalin labeled with the patient 's name and consists of a focally opened gallbladder measuring 8.5 x 3.2 cm. The serosa is yellow-bruce fatty. The wall averages 0.1 cm in thickness. The mucosa is velvety, gold-bruce. The lumen contains viscous gold bile. No stones identified. News Correspondent sections submitted in one cassette. DIAGNOSIS FOR TRUDY COSTA: GALLBLADDER: Acute and chronic cholecystitis, mild. No evidence of malignancy. SERVICE DATE: 07/15/2016 REPORT DATE: 07/16/2016 PATHOLOGIST: Arianna Dickerson III, M.D. MTDD
--- NOTE | 2016-07-16 13:42 | Discharge Summary ---
Hospital Course - Hospital Course Hospital Course: Mr. Costa is a 76 year old W/M who was admitted for acute cholecystitis confirmed by OSH ultrasound. Initial lab work revealed an elevated bilirubin and normal LFT's. He complained of left chest pain so cardiology was consulted. Dr. Jones followed patient throughout his surgery and hospital stay. From a cardiology standpoint, patient's cardiac status was stable enough to proceed with surgery. He had a lap ankit performed by Dr. Bradshaw. During the procedure, he was noted to have cirrhosis of the liver and stricture of the common bile duct. Repeat lab work revealed elevated bilirubin and LFT's. Patient is doing well after cholecystectomy. Tolerating diet. Afebrile. He is to go home today with a follow-up appointment with Dr. Bradshaw in 1 week with repeat LFT's. He will then be referred to a watch crystal molder for workup of elevated LFT's and resolution of his common bile duct stricture. - Time spent with patient Time with patient DS: Less than 30 minutes Specialty Discharge - Follow Up or Referrals Follow up with: Fox Bradshaw MD [Physician] - 07/26/16 2:45 pm (lab work at [facility] on at 1:00) Discharge Plan - Discharge Data Disposition: Disch To Home/Self Care Condition at Discharge: Stable Discharge Diet: advance to your usual diet Activity: increase activity as tolerated, no lifting Hygiene: may shower Driving: other (no driving if taking pain pills) Contact your physician if you experience:: fever over 101, Nausea/Vomiting Wound / Dressing Care Instructions: ok to shower daily w mild soap and water, pat dry. ok to leave open to the air or cover prn w bandaids. - Discharge Medications New HYDROcodone/ACETAMIN 7.5-325 [[place] 7.5-325] 1 tablet PO Q4H PRN #30 tablet PRN Reason: Pain Moderate (4-7) Continue Valacyclovir HCl [Valacyclovir] 500 mg PO DAILY Metformin HCl 850 mg PO BID Tamsulosin HCl 0.4 mg PO DAILY Gabapentin 600 mg PO TID glipiZIDE [Glipizide] 10 mg PO BID Lisinopril/Hydrochlorothiazide [Lisinopril-Hctz 20-12.5 mg Tab] 1 tablet PO DAILY Latanoprost [Latanoprost 0.005 % Oph Soln] 1 drop LEFT EYE BEDTIME Atorvastatin [Lipitor] 10 mg PO DAILY Aspirin [Ecotrin] 81 mg PO DAILY Magnesium Hydroxide [Milk of Magnesia] 2,400 mg PO DAILY PRN PRN Reason: Constipation Temazepam 15 mg PO BEDTIME Omeprazole 40 mg PO DAILY Discontinued Oxycodone HCl/Acetaminophen [Oxycodone-Acetaminophen 10-325] 2 tablet PO Q6H PRN PRN Reason: Pain - Follow Up or Referral Follow Up: Fox Bradshaw MD [Physician] - 07/26/16 2:45 pm (lab work at [facility] on at 1:00) - Forms/Instructions Instructions: Laparoscopic Cholecystectomy (DC) Exam - Constitutional Vitals: Period Temp Pulse Resp BP Sys/Adamson Pulse Ox Last 24 Hr 97.6 F-98.5 F 80-108 16-22 112-168/58-103 93-100 Discharge Results Labs on day of discharge: Labs from last 24 hours 07/16/16 07/16/16 07/16/16 11:20 05:31 05:31 WBC 9.0 D RBC 3.67 L Hgb 12.0 L Hct 34.8 L MCV 94.8 MCH 33 MCHC 34.5 RDW 13.2 Plt Count 341 MPV 10.5 Neut % (Auto) 62.7 Lymph % (Auto) 26.5 [place] % (Auto) 8.9 Eos % (Auto) 1.3 Baso % (Auto) 0.3 Neut # (Auto) 5.6 Lymph # (Auto) 2.4 [place] # (Auto) 0.8 Eos # (Auto) 0.1 Baso # (Auto) 0.0 Immature Gran % 0.3 Nucleated RBC % 0.0 Immature Gran # 0.03 Nucleated RBCs # 0.00 Sodium 140 Potassium 4.2 Chloride 102 Carbon Dioxide 27 Anion Gap 15.2 H BUN 8 Creatinine 1.00 GFR Calculation 82 BUN/Creatinine Ratio 8.00 Glucose 136 H POC Glucose 230 H Calculated Osmolality 278.4 Calcium 9.1 Total Bilirubin 1.60 H AST 132 H ALT 74 H Alkaline Phosphatase 156 H Total Protein 6.5 Albumin 3.4 Globulin 3.1 Albumin/Globulin Ratio 1.0 L Lipase 131.0 D 07/15/16 07/15/16 07/15/16 22:17 19:37 17:04 WBC RBC Hgb Hct MCV MCH MCHC RDW Plt Count MPV Neut % (Auto) Lymph % (Auto) [place] % (Auto) Eos % (Auto) Baso % (Auto) Neut # (Auto) Lymph # (Auto) [place] # (Auto) Eos # (Auto) Baso # (Auto) Immature Gran % Nucleated RBC % Immature Gran # Nucleated RBCs # Sodium Potassium Chloride Carbon Dioxide Anion Gap BUN Creatinine GFR Calculation BUN/Creatinine Ratio Glucose POC Glucose 185 H 202 H 229 H Calculated Osmolality Calcium Total Bilirubin AST ALT Alkaline Phosphatase Total Protein Albumin Globulin Albumin/Globulin Ratio Lipase DS: Provider Date of admission: 07/14/16 17:40 Primary care physician: . No PCP Attending physician on admission: Fox Bradshaw MD Consults: 07/14/16 20:11 Consult to Physician [CONS] Routine Comment: chest pain, h/o CABG Consulting Provider: Consult to Specialist Group: Cardiology When should Consulting Provider be notified: In am Discharging clinician: KATHLEEN Maria Expected date of discharge: 07/16/16
[2016-07-16 16:25] VITALS: BP 127/68
--- NOTE | 2016-07-16 17:11 | Cardiology Progress Note ---
Cardiology - PN: Subj Interval history: Cardiology note Day 1 status post lap ankit No temperature. Eating without difficulty. Incision looks good. Chest clear. Regular rhythm. Abdomen minimally tender. No leg edema. Plan Home today per Dr. Bradshaw. Office visit as previously scheduled. Continue same meds. Exam (Progress Note) - Constitutional Vitals: Period Temp Pulse Resp BP Sys/Adamson Pulse Ox Last 24 Hr 97.6 F-98.5 F 80-95 16-20 112-159/58-95 93-98 Result/EKG - Labs CBC & BMP: 07/16/16 05:31 07/16/16 05:31 Labs: Laboratory Results - last 24 hr 07/15/16 07/15/16 07/15/16 17:04 19:37 22:17 WBC RBC Hgb Hct MCV MCH MCHC RDW Plt Count MPV Neut % (Auto) Lymph % (Auto) [place] % (Auto) Eos % (Auto) Baso % (Auto) Neut # (Auto) Lymph # (Auto) [place] # (Auto) Eos # (Auto) Baso # (Auto) Immature Gran % Nucleated RBC % Immature Gran # Nucleated RBCs # Sodium Potassium Chloride Carbon Dioxide Anion Gap BUN Creatinine GFR Calculation BUN/Creatinine Ratio Glucose POC Glucose 229 H 202 H 185 H Calculated Osmolality Calcium Total Bilirubin AST ALT Alkaline Phosphatase Total Protein Albumin Globulin Albumin/Globulin Ratio Lipase 07/16/16 07/16/16 07/16/16 05:31 05:31 11:20 WBC 9.0 D RBC 3.67 L Hgb 12.0 L Hct 34.8 L MCV 94.8 MCH 33 MCHC 34.5 RDW 13.2 Plt Count 341 MPV 10.5 Neut % (Auto) 62.7 Lymph % (Auto) 26.5 [place] % (Auto) 8.9 Eos % (Auto) 1.3 Baso % (Auto) 0.3 Neut # (Auto) 5.6 Lymph # (Auto) 2.4 [place] # (Auto) 0.8 Eos # (Auto) 0.1 Baso # (Auto) 0.0 Immature Gran % 0.3 Nucleated RBC % 0.0 Immature Gran # 0.03 Nucleated RBCs # 0.00 Sodium 140 Potassium 4.2 Chloride 102 Carbon Dioxide 27 Anion Gap 15.2 H BUN 8 Creatinine 1.00 GFR Calculation 82 BUN/Creatinine Ratio 8.00 Glucose 136 H POC Glucose 230 H Calculated Osmolality 278.4 Calcium 9.1 Total Bilirubin 1.60 H AST 132 H ALT 74 H Alkaline Phosphatase 156 H Total Protein 6.5 Albumin 3.4 Globulin 3.1 Albumin/Globulin Ratio 1.0 L Lipase 131.0 D Specialty Discharge - Follow Up or Referrals Follow up with: Fox Bradshaw MD [Physician] - 07/26/16 2:45 pm (lab work at [facility] on at 1:00)
== END 2016-07-16 15:40 | disposition home or self-care (01) | DRG 417 ==
LOC: EDUNIT# → EDBD → N.ED 16:26 → N.EDINP 17:40 → N.3E 19:15
PROVIDERS: ADMIT Surgery; ATTEND Surgery
PROC: LAPCHOL (2016-07-15 14:00)

== ENCOUNTER 2016-09-14 05:48 | Inpatient (IN) ==
[2016-09-03 11:13] LABS: Basophils # 0.1 10*3/uL (0.0-0.2); Basophils % 0.6 % (0.0-0.8); Eosinophils # 0.2 10*3/uL (0.0-0.87); Eosinophils % 2.4 % (0.00-10.9); Hematocrit 40.2 VOL% (42.0-52.0); Hemoglobin 13.6 GM/DL (14.0-18.0); Immature Granulocytes % 0.4 %; Immature Granulocytes Absolute 0.03 #; Lymphocytes # 2.4 10*3/uL (1.4-4.0); Lymphocytes % 30.2 % (21.2-54.2); Mean Corpuscular HGB Conc 33.8 GM/DL (32-36); Mean Corpuscular Hemoglobin 33 PG (27-34); Mean Corpuscular Volume 96.6 FL (87-102); Mean Platelet Volume 10.6 FL (9.6-12.0); Monocytes # 0.7 10*3/uL (0.11-0.8); Monocytes % 8.5 % (1.7-12.7); Neutrophils # 4.5 10*3/uL (1.4-7.4); Neutrophils % 57.9 % (38.7-73.9); Platelet Count 196 T/CUMM (130-400); Red Blood Count 4.16 MC/CUMM (3.8-5.5); Red Cell Distribution Width 13.1 % (9.3-17.3); White Blood Count 7.8 T/CUMM (4-12)
[2016-09-03 11:16] LABS: Apearance,Urine CLEAR (Clear); Bilirubin,Urine Negative (Negative); Blood, Urine Small mg/dL (Negative); Glucose,Urine (UA) 50 mg/dL (Negative); Ketones,Urine Negative (Negative); Mucus,Urine Occasional /LPF (Occasional); Nitrite,Urine Negative (Negative); Protein,Urine Negative; RBC,Urine <1 /HPF (0-4); Urine Color Yellow (Yellow); Urine Specific Gravity 1.013 (1.001-1.035); Urine Urobilinogen < 2.0 EU/DL (0.2-1.0); WBC,Urine <1 /HPF (0-6)
[2016-09-03 11:24] LABS: PT Patient Result 10.4 SECS; Partial Thromboplastin Time 24.5 SECS (0-40)
--- NOTE | 2016-09-03 11:30 | EKG Report ---
Stationary ECG Study [facility] Test Date: 09/03/2016 11:30:31 AM Pat Name: PEBBLES HAM Department: Room: Gender: M Healthcare Associate: 09/14/16 LUIS ANTONIO : 1940 Requested by: Daniel Montanez Order Number: [id number] Reading MD: JOSR TITUS Intervals [place] Rate: 82 P: 81 IA: 172 QRS: 62 QRSD: 75 T: 88 QT: 371 QTc: 410 Interpretive Statements SINUS RHYTHM WITH VENTRICULAR PREMATURE COMPLEX NONSPECIFIC T-WAVE ABNORMALITY Electronically Signed On 09-03-16 12:11:02 CDT by JOSR TITUS [email or web address]
--- NOTE | 2016-09-03 12:06 | XRay Report ---
XR chest 2V Date: 09/03/2016 10:55 AM History: Respiratory preop evaluation Comparison: 06/08/2016 Technique: PA and lateral chest Findings: The heart is small and compressed by the over expanded lungs. Chronic scarring in patient with prior median sternotomy. Unremarkable mediastinum with degenerative changes. Impression: No acute cardiopulmonary pathology identified. COPD with chronic scarring in patient with prior median sternotomy. PROCEDURE INTERPRETED AT [facility] DEPARTMENT OF RADIOLOGY Final Report Signed by: Dr. Zee Boateng
[2016-09-03 12:07] LABS: Albumin 3.8 G/DL (3.4-5.0); Bilirubin,Total 0.5 MG/DL (0.2-1.0); Calcium 8.6 MG/DL (8.5-10.1); Osmolality,Calculated 291.7 MOS/KG (273-304); Potassium 4.3 MMOL/L (3.5-5.1); Total Protein 6.9 G/DL (6.4-8.3)
[2016-09-14] MEDS ORDERED: LORazepam 1 MG TABLET PO ONE (06:00)
[2016-09-14] MEDS ORDERED: FAMOTIDINE 20 MG TABLET PO ONE (06:00)
[2016-09-14] MEDS ORDERED: ceFAZolin 1,000 MG VIAL ONE (06:12)
[2016-09-14] MEDS ORDERED: VANCOMYCIN 1,000 MG VIAL ONE (06:12)
[2016-09-14] MEDS ORDERED: SODIUM CHLORIDE 0.9% 100 ML IV ONE (06:12)
[2016-09-14] MEDS ORDERED: LORazepam 1 MG TABLET ONE (06:29)
[2016-09-14] MEDS ORDERED: FAMOTIDINE 20 MG TABLET ONE (06:29)
[2016-09-14] MEDS: LACTATED RINGERS 1,000 ML IV SCH (06:32)
[2016-09-14] MEDS ORDERED: TRANEXAMIC ACID 1,000 MG/10 ML VIAL IV ONE (06:45)
[2016-09-14] MEDS ORDERED: VANCOMYCIN INJ 1,000 MG in SODIUM CHLORIDE 0.9% 250 ML IV ONE (07:00)
[2016-09-14] MEDS ORDERED: MEPERIDINE 25 MG/1 ML VIAL IV PRN (07:01)
[2016-09-14] MEDS ORDERED: HYDROmorphone 2 MG/1 ML VIAL IV PRN (07:01)
[2016-09-14] MEDS ORDERED: ONDANSETRON 4 MG/2 ML VIAL IV PRN ×2 (07:01→07:10)
[2016-09-14] MEDS ORDERED: PROPOFOL 200 MG/20 ML VIAL IV ONE (07:05)
[2016-09-14] MEDS ORDERED: PHENYLEPHRINE 1 MG/10 ML SYRINGE IV ONE (07:05)
[2016-09-14] MEDS ORDERED: LIDOCAINE 2% 5 ML VIAL ONE (07:05)
--- NOTE | 2016-09-14 07:08 | History and Physical Update ---
History and Physical Update - History and Physical H&P was reviewed, the patient examined and there: are no changes in the patients condition since last H&P was completed.
[2016-09-14] MEDS ORDERED: diphenhydrAMINE CAP 25 MG CAPSULE PO PRN (07:10)
[2016-09-14] MEDS ORDERED: PROMETHAZINE 25 MG/1 ML VIAL IM PRN (07:10)
[2016-09-14] MEDS ORDERED: MAGNESIUM HYDROXIDE SUSP 30 ML UDCUP PO PRN (07:10)
[2016-09-14] MEDS ORDERED: DEXTROSE 50% 25 GM/50 ML VIAL IV PRN (07:13)
[2016-09-14] MEDS ORDERED: GLUCAGON 1 MG VIAL IM PRN (07:13)
[2016-09-14] MEDS ORDERED: LACTATED RINGERS 1,000 ML IV SCH (07:30)
[2016-09-14] MEDS ORDERED: HYDROmorphone PCA 30 MG/30 ML SYRINGE IV SCH (07:30)
[2016-09-14] MEDS ORDERED: ROPIVACAINE 0.5% 30 ML VIAL ONE (08:46)
[2016-09-14] MEDS ORDERED: LACTATED RINGERS 1,000 ML IV ONE (09:18)
[2016-09-14] MEDS ORDERED: MIDAZOLAM 2 MG/2 ML VIAL ONE (09:18)
[2016-09-14] MEDS ORDERED: SODIUM CHLORIDE 0.9% 250 ML IV ONE (09:18)
[2016-09-14] MEDS ORDERED: ACETAMINOPHEN 1,000 MG/100 ML VIAL IV ONE (09:18)
--- NOTE | 2016-09-14 09:23 | XRay Report ---
Left knee, 2 views. Indication: Postoperative, for joint replacement. Surgical drains and skin leo project over the soft tissues. There is air in the soft tissues. There has been a left total knee joint replacement. The hardware is in good position. No evidence of acute fracture. Vague lucent areas suggested in the proximal shaft of the left fibula. Impression: Expected postoperative appearance of the knee. Lucent areas suggested in the left fibula. Dedicated imaging of the tibia and fibula recommended. PROCEDURE INTERPRETED AT [facility] DEPARTMENT OF RADIOLOGY Final Report Signed by: Dr. Kailey Huitron
--- NOTE | 2016-09-14 09:55 | Anesthesia ---
Anesthesia Post OP - Post Ansesthetic Evaluation Patient seen in post op: Yes Resp: within normal limits CV: within normal limits Mental: within normal limits Temp: within normal limits [id number]: within normal limits Nausea and Vomiting: within normal limits Pain: within normal limits
[2016-09-14] MEDS: INSULIN REGULAR 100 UNIT/ML SUBCUT SCH ×4 (10:13→21:38)
[2016-09-14] MEDS: glipiZIDE 10 MG TABLET PO SCH ×2 (10:25→21:38)
[2016-09-14] MEDS: GABAPENTIN 600 MG TABLET PO SCH ×3 (10:25→21:38)
[2016-09-14] MEDS: INSULIN NPH/REGULAR 70/30 100 UNIT/ML SUBCUT SCH (10:25)
[2016-09-14] MEDS: ASPIRIN EC 81 MG TABLET PO SCH (10:25)
[2016-09-14] MEDS: ATORVASTATIN 10 MG TABLET PO SCH (10:26)
[2016-09-14] MEDS: metFORMIN 500 MG TABLET PO SCH ×2 (10:26→21:38)
[2016-09-14] MEDS: TAMSULOSIN 0.4 MG CAPSULE PO SCH (10:26)
[2016-09-14] MEDS: valACYclovir 500 MG TABLET PO SCH (10:26)
[2016-09-14] MEDS: DOCUSATE SODIUM 100 MG CAPSULE PO SCH ×2 (10:26→21:38)
[2016-09-14] MEDS: ceFAZolin 2,000 MG in PREMIX 1 EACH IV SCH ×2 (12:28→21:40)
--- NOTE | 2016-09-14 13:22 | EKG Report ---
Stationary ECG Study [facility] Test Date: 09/14/2016 1:21:45 PM Pat Name: PEBBLES HAM Department: Room: 324 Gender: M Intranet Developer: LUDWIG : 1940 Requested by: Lucio Payne Order Number: [id number] Reading MD: EDITH CRUZ Intervals [place] Rate: 95 P: 74 NM: 182 QRS: 50 QRSD: 72 T: 90 QT: 350 QTc: 403 Interpretive Statements SINUS RHYTHM@95BPM MODERATE ST DEPRESSION/NST; CONSIDER ISCHEMIA Electronically Signed On 09-14-16 13:21:47 CDT by EDITH CRUZ [id number]
--- NOTE | 2016-09-14 15:21 | Operative Note ---
DATE: 09/14/2016 PREOPERATIVE DIAGNOSIS: OSTEOARTHRITIS, LEFT KNEE. POSTOPERATIVE DIAGNOSIS: OSTEOARTHRITIS, LEFT KNEE. OPERATIVE PROCEDURE: Left total knee ([place]E). SURGEON: MEGHA SALMON JR., MD WASTEWATER SUPERVISOR: DR. MARQUEZ. ANESTHESIA: SPINAL. INDICATIONS: A 76-year-old white male with severe osteoarthritis to his left knee. He has maximize d conservative treatment through the years including multiple injections. He also previously had a right total knee for which he has done very well. He presents today for elective left total knee. OPERATIVE PROCEDURE: The patient was taken to the operating room under spinal anesthetic, position ed in the supine position. The left lower extremity was positioned, prepped and draped in the usual sterile manner. He received vancomycin and Ancef preoperatively. The limb was elevated, exsanguin ated, and tourniquet inflated to 300 mmHg. A midline incision made over the anterior aspect of the left knee. Sharp dissection was carried down through the skin and subcutaneous tissue. A median pa rapatellar arthrotomy performed. The knee revealing extensive tricompartmental degenerative changes with nothing, but grade 4 changes medially. This included both the femur and tibia. Intramedullar y alignment guides were used to make the appropriate cuts about the distal femur and proximal tibia. The femur was sized to a 6 with tibia to a 7. A 6-mm polyethylene spacer was selected. The PCL r etained. The patellar resurfaced with a 38 button. After removal of the trial components, the knee irrigated, and all three components were cemented into place. After the cement hardened, the wound was thoroughly irrigated and closed over two 1/8th-inch Hemovac drains in a standard fashion using #1 Vicryl for the arthrotomy, 2-0 Vicryl for the subcutaneous layer, and leo for skin. The tour niquet was deflated during wound closure at 42 minutes. A sterile dressing was applied. He was vasquez en to the recovery room in a stable condition.
--- NOTE | 2016-09-14 16:54 | Orthopedic Progress Note ---
Orthopedics - Subjective Interval history: comfortable good po up in am Exam - Constitutional Vitals: Period Temp Pulse Resp BP Sys/Adamson Pulse Ox Last 24 Hr 97.2 F-98.9 F 66-98 15-20 104-160/66-89 95-100 Results - Labs CBC & BMP: 09/03/16 11:05 09/03/16 11:05
--- NOTE | 2016-09-14 17:31 | Cardiology Consult Note ---
I, Radha Suarez RN, am scribing for, and in the presence of, Lucio Payne MD 17:31. Assessment and Plan - Time spent with patient Time spent with patient: Greater than 30 minutes (Due to assessment, planning, documentation, medication review) (1) CAD (coronary artery disease) Status: Chronic Assessment and plan: Patient is known CAD and some atrial fibrillation. Status post left TKA. Plan/recommendation: Continue home cardiac meds. EKG every morning 3. Watch out for atrial fib or ischemia. I discussed with the patient he is to let me know if he begins to have chest pain or shortness of breath. Thank you for allowing me to participate in this patient's care Current Visit: Yes (2) Status post total left knee replacement Status: Acute Current Visit: Yes (3) Dyslipidemia Status: Chronic Current Visit: Yes (4) History of coronary artery bypass graft Status: Chronic Current Visit: Yes (5) Paroxysmal a-fib Status: Chronic Current Visit: No History of Present Illness - Data of Consult Patient: known to practice within the last 3 years Consult date: 09/14/16 Requesting Physician: Daniel Montanez Jr. - Consult Narrative Reason for consult: Follow-up postop History of present illness: Mr. Costa is a 76 year old male who is routinely followed by Dr. Jones with a history of CAD, paroxysmal atrial fibrillation, IDDM, and hypertension. In 2008 he underwent coronary artery bypass surgery with ANAND to LAD and saphenous vein graft to obtuse marginal. In December 2009, he underwent cath that indicated his grafts were widely patent with good runoff, also the dominant right coronary artery remained patent with mild irregularities only. Other surgical history includes right knee replacement in June, back surgery, cholecystectomy, and left knee replacement today. Dr. Jones's clinic note mentions that he had postop atrial fib and was converted with IV amiodarone. He does not indicate which surgery this was, and the patient is not sure. He does not take amiodarone as a home med. Family history includes mother with diabetes. He reports smoking in the remote past. Patient was admitted today for left total knee replacement by Dr. Tarik Dubose. Dr. Jones saw the patient in the office back in May in anticipation of right knee replacement done on June 23, 2016 he had a stress test done at that time that was read as a normal perfusion study, the scan was suggestive of low risk for future cardiovascular events. He denies having any recent chest pain or shortness of breath. Stating his only complaint is his left knee. He does tell me he had an episode several months ago where he nearly passed out and we checked his blood pressure was elevated. Currently the patient is housed on 3 E. he is status post left knee replacement today. Dressing noted to left knee. He denies chest pain, shortness of breath , palpitations, or dizziness. Oxygen is not in use and he is tolerating this well. Vital signs been stable with heart rates in the 60s-70s, most recent blood pressure 139/80. His home medications have been restarted. CC: Daniel Montanez Jr., MD - Home Medications and Allergies Home Medications: Home Medications Medication Instructions Recorded Confirmed Type Aspirin [Ecotrin] 81 mg PO DAILY 12/11/15 09/14/16 History Atorvastatin [Lipitor] 10 mg PO DAILY 12/11/15 09/14/16 History Gabapentin 600 mg PO TID 12/11/15 09/14/16 History Latanoprost [Latanoprost 0.005 % 1 drop LEFT EYE BEDTIME 12/11/15 09/14/16 History Oph Soln] Lisinopril/Hydrochlorothiazide 1 tablet PO BEDTIME 12/11/15 09/14/16 History [Lisinopril-Hctz 20-12.5 mg Tab] Metformin HCl 500 mg PO BID 12/11/15 09/14/16 History Tamsulosin HCl 0.4 mg PO DAILY 12/11/15 09/14/16 History Valacyclovir HCl [Valacyclovir] 500 mg PO DAILY 12/11/15 09/14/16 History glipiZIDE [Glipizide] 10 mg PO BID 12/11/15 09/14/16 History Hum Insulin NPH/Reg Insulin Hm 30 unit SUBCUT QAM 09/14/16 09/14/16 History [NovoLIN 70/30] Hum Insulin NPH/Reg Insulin Hm 40 unit SUBCUT QPM 09/14/16 09/14/16 History [NovoLIN 70/30] Allergies/Adverse Reactions: Allergies Allergy/AdvReac Type Severity Reaction Status Date / Time No Known Allergies Allergy Verified 09/14/16 06:19 - Constitutional Constitutional: Present: as per HPI - EENT Eyes: Present: requires corrective lense. Absent: blurry vision Ears: Absent: decreased hearing, tinnitus Nose, mouth and throat: Absent: dysphagia, epistaxis, headache(s), neck pain - Cardiovascular Cardiovascular: Absent: chest pain at rest, chest pain with activity, dyspnea, dyspnea on exertion, edema, radiating jaw, neck or arm pain, lightheadedness, orthopnea, palpitations - Respiratory Respiratory: Absent: cough, dyspnea, hemoptysis, dyspnea on exertion, wheezing - Gastrointestinal Gastrointestinal: Absent: abdominal pain, constipation, diarrhea, hematemesis, hematochezia, melena, nausea, vomiting - Genitourinary Genitourinary: Absent: dysuria, hematuria - Musculoskeletal Musculoskeletal: Present: back pain, limited range of motion, muscle weakness - Neurological Neurological: Present: abnormal gait. Absent: abnormal speech, dizziness, frequent falls, headache(s) - Psychiatric Psychiatric: Absent: anxiety, depression - Endocrine Endocrine: Present: fatigue - Hematologic/Lymphatic Hematologic/Lymphatic: Absent: easy bleeding, easy bruising Medical,Surgical,& Family Hx - Medical History Cardio: History of: Cardiac Dysrhythmia (PAfib), CAD (CABG in 2008), Hypertension Neurology: History of: Peripheral Neuropathy HEENT: History of: Eye Problem (LEFT), Dental Problems (FULL SET) Endocrine: History of: Diabetes Mellitus (IDDM), Dyslipidemia Rheumatology: History of;: Rheumatoid Arthritis Genitourinary: History of: Kidney Stones, Prostate Problems Gastrointestinal: History of: GERD, GI Problems (ulcers) Musculoskeletal: History of: Back/Neck Problems - Surgical History Cardiac Surgeries: Sugical HX of: Cardiac Catheterization (most recent 2009), Cardiac Surgery (CABG 2008) HEENT Surgeries: Surgical HX of: Eye Surgery (CATARACT SURGERY BILATERAL) Abdominal Surgeries: Surgical HX of: Cholecystectomy Orthopedic Surgeries: Surgical HX of;: Spinal Surgery (back), Total Knee Replacement (RT KNEE 06/29, left 09/27) - Family History Family History: Reports;: Family Diabetes (mother), Family Heart Disease ( mother and father), Family Hypertension (mother) - Social History Smoking Status: Former smoker (States he quit in the remote past) Have you smoked in the last 12 months: No Frequency of Alcohol Use: None Type of Drug Use: None Lives With:: Alone Functional capacity: uses cane/walker Physical Examination Vital Signs Temp Pulse Resp Pulse Ox 97.3 F L 76 20 99 04/04/17 06:26 09/14/16 06:26 09/14/16 06:26 09/14/16 06:26 General: Present: Appears Well, No Apparent Distress HEENT: Present: PERRL, Mucus Membranes Moist Neck: Present: Supple Neck, Midline Trachea, No JVD/HJR, No Bruit Cardiac: Present: Reg Rate and Rhythm, No Murmur Lungs: Present: Normal Breath Sounds, No Wheeze, Rales, Rhonchi. Absent: Oxygen Neuro: Absent: Essential Tremor Abdomen: Present: Soft, Active Bowel Sounds, Non-Tender. Absent: Distended Skin: Present: Clear Incision: Present: Incision Site (Dressing noted to left knee) Musculoskeletal: Present: Decreased Range of Motion, Pain in Joint Gait: Present: Poor Gait Extremities: Present: Normal Upper Extr. Pulses, Edema (Trace to bilateral lower extremity). Absent: Normal Gait, Normal Lower Extr. Pulses (Weak bilaterally) Result/EKG - Labs CBC & BMP: 09/03/16 11:05 09/03/16 11:05 Labs: Laboratory Results - last 24 hr 09/14/16 09/14/16 06:19 06:20 POC Glucose 161 H Blood Type O NEGATIVE Antibody Screen Negative Kerry Barker Dale, MD, personally performed the services described in this documentation, ascribed by Radha Suarez RN in my presence, and it is both accurate and complete [id number] .
[2016-09-14] MEDS ORDERED: ceFAZolin 2,000 MG in PREMIX 1 EACH IV ONE (21:30)
[2016-09-14] MEDS: LISINOPRIL/HCTZ 20-12.5 MG TABLET PO SCH (21:38)
[2016-09-14] MEDS: LATANOPROST 0.005% OPH SOLN 2.5 ML BOTTLE LEFT EYE SCH (21:39)
[2016-09-15] MEDS: INSULIN NPH/REGULAR 70/30 100 UNIT/ML SUBCUT SCH ×3 (01:20→20:36)
[2016-09-15] MEDS: FONDAPARINUX 2.5 MG/0.5 ML SYRINGE SUBCUT SCH (01:59)
[2016-09-15] MEDS: LACTATED RINGERS 1,000 ML IV SCH (03:58)
[2016-09-15 07:16] LABS: Basophils # 0.1 10*3/uL (0.0-0.2); Basophils % 0.6 % (0.0-0.8); Eosinophils # 0.1 10*3/uL (0.0-0.87); Eosinophils % 1.3 % (0.00-10.9); Hematocrit 31.4 VOL% (42.0-52.0); Hemoglobin 10.2 GM/DL (14.0-18.0); Immature Granulocytes % 0.5 %; Immature Granulocytes Absolute 0.04 #; Lymphocytes # 1.4 10*3/uL (1.4-4.0); Lymphocytes % 15.8 % (21.2-54.2); Mean Corpuscular HGB Conc 32.5 GM/DL (32-36); Mean Corpuscular Hemoglobin 32 PG (27-34); Mean Corpuscular Volume 98.4 FL (87-102); Mean Platelet Volume 11.2 FL (9.6-12.0); Monocytes # 0.9 10*3/uL (0.11-0.8); Neutrophils # 6.1 10*3/uL (1.4-7.4); Neutrophils % 70.8 % (38.7-73.9); Platelet Count 172 T/CUMM (130-400); Red Blood Count 3.19 MC/CUMM (3.8-5.5); Red Cell Distribution Width 13.1 % (9.3-17.3); White Blood Count 8.6 T/CUMM (4-12)
[2016-09-15 07:46] LABS: Osmolality,Calculated 280.3 MOS/KG (273-304); Potassium 3.3 MMOL/L (3.5-5.1)
--- NOTE | 2016-09-15 08:08 | EKG Report ---
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
--- NOTE | 2016-09-15 08:27 | Orthopedic Progress Note ---
Orthopedics - Subjective Interval history: Comfortable tolerating p.o. fair pain control is good may stop Dilaudid CATHODE WASHER today seems somewhat oversedated. May require in and out cath urine/ start PT Exam - Constitutional Vitals: Period Temp Pulse Resp BP Sys/Adamson Pulse Ox Last 24 Hr 97.2 F-100.1 F 66-99 15-20 94-160/48-89 92-100 Results - Labs CBC & BMP: 09/15/16 06:19 09/15/16 06:19
[2016-09-15] MEDS: ASPIRIN EC 81 MG TABLET PO SCH (08:49)
[2016-09-15] MEDS: GABAPENTIN 600 MG TABLET PO SCH ×3 (08:49→20:36)
[2016-09-15] MEDS: ATORVASTATIN 10 MG TABLET PO SCH (08:50)
[2016-09-15] MEDS: TAMSULOSIN 0.4 MG CAPSULE PO SCH (08:50)
[2016-09-15] MEDS: metFORMIN 500 MG TABLET PO SCH ×2 (08:50→20:36)
[2016-09-15] MEDS: glipiZIDE 10 MG TABLET PO SCH ×2 (08:50→20:36)
[2016-09-15] MEDS: valACYclovir 500 MG TABLET PO SCH (08:50)
[2016-09-15] MEDS: DOCUSATE SODIUM 100 MG CAPSULE PO SCH ×2 (08:50→21:07)
[2016-09-15] MEDS: INSULIN REGULAR 100 UNIT/ML SUBCUT SCH ×4 (09:46→20:37)
[2016-09-15] MEDS ORDERED: POTASSIUM CHLORIDE 20 MEQ PACK PO ONE (10:42)
--- NOTE | 2016-09-15 10:43 | Pathology Report from [facility] ---
ACCESSION # : [id number] PATIENT NAME : Trudy Costa ORDERING DR : MEGHA SALMON JR, MD CLINICAL HX: LT knee bone & tissue POST-OP DX: Same SPECIMEN INFO: LT knee bone & tissue GROSS DESCRIPTION: Specimen formalin labeled "TRUDY COSTA" is an aggregate of bone, cartilage and adipose tissue measuring collectively 14.3 x 16.8 cm. The articular surfaces are focally degenerative with areas of bone eburnation measuring up to 3.5 cm. Core Dropper tissue submitted in one cassette. DIAGNOSIS FOR TRUDY COSTA: Left knee joint showing changes of degenerative joint disease/osteoarthritis. SERVICE DATE: 09/14/2016 REPORT DATE: 09/15/2016 PATHOLOGIST: David Ritter M.D. [facility]
--- NOTE | 2016-09-15 19:39 | Cardiology Progress Note ---
I, Radha Suarez RN, am scribing for, and in the presence of, Lucio Payne MD 19:38. Assessment and Plan (1) CAD (coronary artery disease) Status: Chronic Assessment and plan: 09/14/2016 initial assessment and plan: Patient is known CAD and some atrial fibrillation. Status post left TKA. Plan/recommendation: Continue home cardiac meds. EKG every morning 3. Watch out for atrial fib or ischemia. I discussed with the patient he is to let me know if he begins to have chest pain or shortness of breath. 09/15/2016 : assessment and plan: No chest pain or shortness of breath. Potassium is low. We will replete with KCl 40 mg p.o. now. Recheck potassium and magnesium in a.m. Current Visit: Yes (2) Status post total left knee replacement Status: Acute Current Visit: Yes (3) Dyslipidemia Status: Chronic Current Visit: Yes (4) History of coronary artery bypass graft Status: Chronic Current Visit: Yes (5) Paroxysmal a-fib Status: Chronic Current Visit: No Cardiology - PN: Subj Interval history: Security Test Engineer: Dr. Jones Mr. Costa is seen resting in bed in no acute distress. He is day 1 postop left total knee. He is in less knee pain today than he was yesterday afternoon. He is not short of breath, oxygen not in use. He denies chest pain , palpitations, or dizziness. He did run a temp of 100.1 last night, but all other vital signs have been stable. EKG done today with sinus rhythm heart rate of 96. He is on a baby aspirin daily. Potassium is 3.3 this morning. Exam (Progress Note) - Constitutional Vitals: Period Temp Pulse Resp BP Sys/Adamson Pulse Ox Last 24 Hr 97.2 F-100.1 F 66-99 17-20 94-160/48-89 92-100 General appearance: no acute distress - Head Head exam: Absent: abrasion, hematoma - Eye Eye exam: Absent: periorbital swelling, laceration to eyelids - Respiratory Respiratory exam: Present: clear to auscultation bilaterally. Absent: accessory muscle use, chest wall tenderness - Cardiovascular Cardiovascular exam: Present: regular rate and rhythm - GI/Abdominal GI/Abdominal exam: Present: normal bowel sounds, soft. Absent: distended, tenderness - Extremities Exam Extremities exam: Present: other (Dressing noted to left knee). Absent: edema - Neurological Exam Neurological exam: Present: alert, oriented X3 - Psychiatric Psychiatric exam: Present: normal affect, normal mood - Skin Skin exam: Present: warm, dry Result/EKG - Labs CBC & BMP: 09/15/16 06:19 09/15/16 06:19 Lab Results: I have reviewed the past 24 hour labs Labs: Laboratory Results - last 24 hr 09/14/16 09/14/16 09/14/16 10:24 10:59 16:01 WBC RBC Hgb Hct MCV MCH MCHC RDW Plt Count MPV Neut % (Auto) Lymph % (Auto) Rains % (Auto) Eos % (Auto) Baso % (Auto) Neut # (Auto) Lymph # (Auto) Rains # (Auto) Eos # (Auto) Baso # (Auto) Immature Gran % Nucleated RBC % Immature Gran # Nucleated RBCs # Sodium Potassium Chloride Carbon Dioxide Anion Gap BUN Creatinine GFR Calculation BUN/Creatinine Ratio Glucose POC Glucose 160 H 309 H 199 H Calculated Osmolality Calcium 09/14/16 09/15/16 09/15/16 19:49 06:19 06:19 WBC 8.6 RBC 3.19 L Hgb 10.2 L Hct 31.4 L MCV 98.4 MCH 32 MCHC 32.5 RDW 13.1 Plt Count 172 MPV 11.2 Neut % (Auto) 70.8 Lymph % (Auto) 15.8 L Rains % (Auto) 11.0 Eos % (Auto) 1.3 Baso % (Auto) 0.6 Neut # (Auto) 6.1 Lymph # (Auto) 1.4 Rains # (Auto) 0.9 H Eos # (Auto) 0.1 Baso # (Auto) 0.1 Immature Gran % 0.5 Nucleated RBC % 0.0 Immature Gran # 0.04 Nucleated RBCs # 0.00 Sodium 141 Potassium 3.3 L Chloride 101 Carbon Dioxide 30 Anion Gap 13.3 BUN 11 Creatinine 1.00 GFR Calculation 84 BUN/Creatinine Ratio 11.00 Glucose 115 H POC Glucose 157 H Calculated Osmolality 280.3 Calcium 8.0 L 09/15/16 07:11 WBC RBC Hgb Hct MCV MCH MCHC RDW Plt Count MPV Neut % (Auto) Lymph % (Auto) Rains % (Auto) Eos % (Auto) Baso % (Auto) Neut # (Auto) Lymph # (Auto) Rains # (Auto) Eos # (Auto) Baso # (Auto) Immature Gran % Nucleated RBC % Immature Gran # Nucleated RBCs # Sodium Potassium Chloride Carbon Dioxide Anion Gap BUN Creatinine GFR Calculation BUN/Creatinine Ratio Glucose POC Glucose 146 H Calculated Osmolality Calcium - EKG EKG results: interpreted by me EKG shows: sinus rhythm IKerry Dale, MD, personally performed the services described in this documentation, ascribed by Radha Suarez RN in my presence, and it is both accurate and complete 938 .
[2016-09-15] MEDS: HYDROmorphone 2 MG/1 ML VIAL IV PRN (19:48)
[2016-09-15] MEDS: TEMAZEPAM 7.5 MG CAPSULE PO PRN (20:36)
[2016-09-15] MEDS: LISINOPRIL/HCTZ 20-12.5 MG TABLET PO SCH (20:36)
[2016-09-15] MEDS: LATANOPROST 0.005% OPH SOLN 2.5 ML BOTTLE LEFT EYE SCH (21:07)
[2016-09-16] MEDS: HYDROmorphone 2 MG/1 ML VIAL IV PRN ×2 (03:56→21:42)
[2016-09-16] MEDS: FONDAPARINUX 2.5 MG/0.5 ML SYRINGE SUBCUT SCH (04:10)
[2016-09-16 05:39] LABS: Basophils % 0.4 % (0.0-0.8); Eosinophils # 0.5 10*3/uL (0.0-0.87); Eosinophils % 5.3 % (0.00-10.9); Hematocrit 28.6 VOL% (42.0-52.0); Hemoglobin 9.7 GM/DL (14.0-18.0); Immature Granulocytes % 0.7 %; Immature Granulocytes Absolute 0.06 #; Lymphocytes # 2.1 10*3/uL (1.4-4.0); Lymphocytes % 22.4 % (21.2-54.2); Mean Corpuscular HGB Conc 33.9 GM/DL (32-36); Mean Corpuscular Hemoglobin 32 PG (27-34); Mean Corpuscular Volume 95.7 FL (87-102); Mean Platelet Volume 10.9 FL (9.6-12.0); Monocytes % 10.6 % (1.7-12.7); Neutrophils # 5.6 10*3/uL (1.4-7.4); Neutrophils % 60.6 % (38.7-73.9); Platelet Count 154 T/CUMM (130-400); Red Blood Count 2.99 MC/CUMM (3.8-5.5); White Blood Count 9.2 T/CUMM (4-12)
[2016-09-16 06:11] LABS: Magnesium 1.7 MG/DL (1.8-2.4); Potassium 3.2 MMOL/L (3.5-5.1)
[2016-09-16] MEDS: LACTATED RINGERS 1,000 ML IV SCH (06:48)
--- NOTE | 2016-09-16 07:13 | EKG Report ---
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
[2016-09-16] MEDS: INSULIN REGULAR 100 UNIT/ML SUBCUT SCH ×4 (08:11→20:47)
--- NOTE | 2016-09-16 08:17 | Orthopedic Progress Note ---
Orthopedics - Subjective Interval history: Hematocrit 28. Comfortable Arixtra causing increased bloody drainage will hold and stop for now continue with his aspirin mobilizing to home to rehab soon Exam - Constitutional Vitals: Period Temp Pulse Resp BP Sys/Adamson Pulse Ox Last 24 Hr 98.2 F-99.9 F 93-119 17-20 86-144/52-88 92-94 Results - Labs CBC & BMP: 09/16/16 05:20 09/16/16 05:20
[2016-09-16] MEDS: INSULIN NPH/REGULAR 70/30 100 UNIT/ML SUBCUT SCH ×2 (08:47→20:48)
[2016-09-16] MEDS: ATORVASTATIN 10 MG TABLET PO SCH (08:51)
[2016-09-16] MEDS: valACYclovir 500 MG TABLET PO SCH (08:51)
[2016-09-16] MEDS: ASPIRIN EC 81 MG TABLET PO SCH (08:51)
[2016-09-16] MEDS: metFORMIN 500 MG TABLET PO SCH ×2 (08:51→20:49)
[2016-09-16] MEDS: GABAPENTIN 600 MG TABLET PO SCH ×3 (08:51→20:49)
[2016-09-16] MEDS: TAMSULOSIN 0.4 MG CAPSULE PO SCH (08:51)
[2016-09-16] MEDS: glipiZIDE 10 MG TABLET PO SCH ×2 (08:51→20:49)
[2016-09-16] MEDS: DOCUSATE SODIUM 100 MG CAPSULE PO SCH ×2 (08:55→20:49)
[2016-09-16] MEDS ORDERED: POTASSIUM CHLORIDE 20 MEQ PACK PO ONE (15:10)
[2016-09-16] MEDS ORDERED: MAGNESIUM SULF RIDER 2 GM in PREMIX 1 EACH IV ONE (16:00)
[2016-09-16] MEDS: TEMAZEPAM 7.5 MG CAPSULE PO PRN (20:48)
[2016-09-16] MEDS: LATANOPROST 0.005% OPH SOLN 2.5 ML BOTTLE LEFT EYE SCH (20:49)
[2016-09-16] MEDS: LISINOPRIL/HCTZ 20-12.5 MG TABLET PO SCH (20:49)
--- NOTE | 2016-09-16 20:59 | Cardiology Progress Note ---
I, Radha Suarez RN, am scribing for, and in the presence of, Lucio Payne MD 20:57. Assessment and Plan (1) CAD (coronary artery disease) Status: Chronic Assessment and plan: 09/14/2016 initial assessment and plan: Patient is known CAD and some atrial fibrillation. Status post left TKA. Plan/recommendation: Continue home cardiac meds. EKG every morning 3. Watch out for atrial fib or ischemia. I discussed with the patient he is to let me know if he begins to have chest pain or shortness of breath. 09/15/2016: Assessment/plan/recommendation:No chest pain or shortness of breath. Potassium is low. We will replete with KCl 40 mg p.o. now. Recheck potassium and magnesium in a.m. 09/16/2016: Assessment/plan/recommendation: No chest pain or shortness of breath. Less pain is still some pain. His magnesium and potassium remained low. We will give mag sulfate 2 g IV over an hour. Also KCl 40 mg and water or juice p.o. 1. Will recheck a BMP and magnesium in the morning. Current Visit: Yes (2) Status post total left knee replacement Status: Acute Current Visit: Yes (3) Dyslipidemia Status: Chronic Current Visit: Yes (4) History of coronary artery bypass graft Status: Chronic Current Visit: Yes (5) Paroxysmal a-fib Status: Chronic Current Visit: No (6) Hypokalemia Status: Acute Current Visit: Yes (7) Hypomagnesemia Status: Acute Current Visit: Yes Cardiology - PN: Subj Interval history: Lithoduplicator Operator: Dr. Jones Mr. Costa is seen resting in bed in no acute distress. He is day 2 status post left total knee. Dressing noted to left knee. He denies chest pain, shortness of breath, palpitations, or dizziness. Vital signs have been stable throughout the night, EKG this morning with sinus rhythm heart rate of 92. Potassium yesterday was 3.3 he was given 40 meq of potassium 1 dose, this morning his potassium is 3.2. Magnesium is 1.7. He reports he is to start physical therapy today. Exam (Progress Note) - Constitutional Vitals: Period Temp Pulse Resp BP Sys/Adamson Pulse Ox Last 24 Hr 98.2 F-99.9 F 93-119 17-20 86-144/52-88 92-94 General appearance: normal weight, no acute distress - Head Head exam: Absent: abrasion, hematoma - Eye Eye exam: Absent: periorbital swelling, laceration to eyelids - Respiratory Respiratory exam: Present: clear to auscultation bilaterally. Absent: accessory muscle use, chest wall tenderness - Cardiovascular Cardiovascular exam: Present: regular rate and rhythm. Absent: rubs - GI/Abdominal GI/Abdominal exam: Present: normal bowel sounds, soft. Absent: distended, tenderness - Extremities Exam Extremities exam: Present: other (Dressing to left knee). Absent: edema - Neurological Exam Neurological exam: Present: alert, oriented X3 - Psychiatric Psychiatric exam: Present: normal affect, normal mood - Skin Skin exam: Present: warm, dry Result/EKG - Labs CBC & BMP: 09/16/16 05:20 09/16/16 05:20 Lab Results: I have reviewed the past 24 hour labs Labs: Laboratory Results - last 24 hr 09/15/16 09/15/16 09/15/16 12:17 15:45 19:35 WBC RBC Hgb Hct MCV MCH MCHC RDW Plt Count MPV Neut % (Auto) Lymph % (Auto) [place] % (Auto) Eos % (Auto) Baso % (Auto) Neut # (Auto) Lymph # (Auto) [place] # (Auto) Eos # (Auto) Baso # (Auto) Immature Gran % Nucleated RBC % Immature Gran # Nucleated RBCs # Potassium POC Glucose 59 L 118 H 213 H Magnesium 09/16/16 09/16/16 09/16/16 05:20 05:20 06:55 WBC 9.2 RBC 2.99 L Hgb 9.7 L Hct 28.6 L MCV 95.7 MCH 32 MCHC 33.9 RDW 13.0 Plt Count 154 MPV 10.9 Neut % (Auto) 60.6 Lymph % (Auto) 22.4 [place] % (Auto) 10.6 Eos % (Auto) 5.3 Baso % (Auto) 0.4 Neut # (Auto) 5.6 Lymph # (Auto) 2.1 [place] # (Auto) 1.0 H Eos # (Auto) 0.5 Baso # (Auto) 0.0 Immature Gran % 0.7 Nucleated RBC % 0.0 Immature Gran # 0.06 Nucleated RBCs # 0.00 Potassium 3.2 L POC Glucose 61 L Magnesium 1.7 L 09/16/16 08:04 WBC RBC Hgb Hct MCV MCH MCHC RDW Plt Count MPV Neut % (Auto) Lymph % (Auto) [place] % (Auto) Eos % (Auto) Baso % (Auto) Neut # (Auto) Lymph # (Auto) [place] # (Auto) Eos # (Auto) Baso # (Auto) Immature Gran % Nucleated RBC % Immature Gran # Nucleated RBCs # Potassium POC Glucose 164 H Magnesium - EKG EKG results: interpreted by me EKG shows: sinus rhythm Specialty Discharge - Follow Up or Referrals Follow up with: Daniel Montanez Jr., MD [Physician] - Kerry Barker Dale, MD, personally performed the services described in this documentation, ascribed by Radha Suarez RN in my presence, and it is both accurate and complete .
[2016-09-17 05:20] LABS: Calcium 8.5 MG/DL (8.5-10.1); Magnesium 2.1 MG/DL (1.8-2.4); Osmolality,Calculated 271.8 MOS/KG (273-304)
[2016-09-17] MEDS: HYDROmorphone 2 MG/1 ML VIAL IV PRN ×2 (06:37→11:46)
--- NOTE | 2016-09-17 07:21 | Orthopedic Progress Note ---
Orthopedics - Subjective Interval history: Some increased pain this morning left ankle and foot wound is dressing is dry continue with rehab most likely to swing bed soon discharge instructions given Exam - Constitutional Vitals: Period Temp Pulse Resp BP Sys/Adamson Pulse Ox Last 24 Hr 98.0 F-99.4 F 98-112 18-20 93-138/58-87 93-96 Results - Labs CBC & BMP: 09/16/16 05:20 09/17/16 03:46 Specialty Discharge - Follow Up or Referrals Follow up with: Daniel Montanez Jr., MD [Physician] -
--- NOTE | 2016-09-17 07:23 | Discharge Summary ---
Hospital Course - Hospital Course Hospital Course: Admitted for elective left total knee discharged to swing bed Diagnosis - Discharge Diagnosis (1) Osteoarthritis of left knee Status: Acute Specialty Discharge - Follow Up or Referrals Follow up with: Daniel Montanez Jr., MD [Physician] - Discharge Plan - Discharge Data Disposition: Swing Bed, Hos Based, [facility] Condition at Discharge: Stable Discharge Diet: advance to your usual diet Activity: ambulate only with your walker, as per physical therapy, increase activity as tolerated Hygiene: may shower, keep area(s) dry - Discharge Medications New HYDROcodone/ACETAMIN 7.5-325 [[place] 7.5-325] 1 tablet PO Q4H PRN #30 tablet PRN Reason: Pain Moderate (4-7) Continue Valacyclovir HCl [Valacyclovir] 500 mg PO DAILY Metformin HCl 500 mg PO BID Tamsulosin HCl 0.4 mg PO DAILY Gabapentin 600 mg PO TID glipiZIDE [Glipizide] 10 mg PO BID Lisinopril/Hydrochlorothiazide [Lisinopril-Hctz 20-12.5 mg Tab] 1 tablet PO BEDTIME Latanoprost [Latanoprost 0.005 % Oph Soln] 1 drop LEFT EYE BEDTIME Atorvastatin [Lipitor] 10 mg PO DAILY Aspirin [Ecotrin] 81 mg PO DAILY Hum Insulin NPH/Reg Insulin Hm [NovoLIN 70/30] 40 unit SUBCUT QPM Hum Insulin NPH/Reg Insulin Hm [NovoLIN 70/30] 30 unit SUBCUT QAM - Follow Up or Referral Follow Up: Daniel Montanez Jr., MD [Physician] - - Forms/Instructions Additional Discharge Instructions: Discharge swing bed continue home medications including aspirin daily Oxford for pain weightbearing as tolerated total knee protocol CPM. [place] out wound Steri-Stripped September 28 at follow-up 4 weeks Exam - Constitutional Vitals: Period Temp Pulse Resp BP Sys/Adamson Pulse Ox Last 24 Hr 98.0 F-99.4 F 98-112 18-20 93-138/58-87 93-96 Discharge Results Labs on day of discharge: Labs from last 24 hours 09/17/16 09/17/16 09/16/16 06:55 03:46 20:02 Sodium 137 Potassium 4.0 Chloride 99 Carbon Dioxide 29 Anion Gap 13.0 BUN 11 Creatinine 1.00 GFR Calculation 84 BUN/Creatinine Ratio 11.00 Glucose 107 H POC Glucose 95 296 H Calculated Osmolality 271.8 L Calcium 8.5 Magnesium 2.1 09/16/16 09/16/16 09/16/16 15:46 11:16 08:04 Sodium Potassium Chloride Carbon Dioxide Anion Gap BUN Creatinine GFR Calculation BUN/Creatinine Ratio Glucose POC Glucose 279 H 242 H 164 H Calculated Osmolality Calcium Magnesium 09/16/16 06:55 Sodium Potassium Chloride Carbon Dioxide Anion Gap BUN Creatinine GFR Calculation BUN/Creatinine Ratio Glucose POC Glucose 61 L Calculated Osmolality Calcium Magnesium DS: Provider Date of admission: 09/14/16 05:48 Primary care physician: Miguel Jones M.D. Attending physician on admission: Daniel Montanez Jr., MD Consults: 09/14/16 07:10 Consult to Case Mgmt/Social Srvs [CONS] Routine Reason for Case Mgmt/Social Srvs: Rehab Home Health Equipment Consult Comment: Bedside Commode, CPM, Walker Consult to Occupational Therapy [CONS] Routine Reason for Occupational Therapy: Evaluate and Treat Consult Comment: ADL's Consult to Physical Therapy [CONS] Routine Reason for Physical Therapy: Evaluate and Treat Gait Training 09/14/16 07:11 Consult to Physician [CONS] Routine Comment: garrick Consulting Provider: Vasiliy Jones Consulting Provider Notified: Yes When should Consulting Provider be notified: Now Person Notified: catrina lowry Date Notified: 09/14/16 Time Notified: 09:50 09/14/16 10:35 Consult to Pharmacy [CONS] Routine Reason for Pharmacy Consult: Adjust Meds Renal Funct Discharging clinician: Daniel Montanez Jr., MD
[2016-09-17] MEDS: INSULIN REGULAR 100 UNIT/ML SUBCUT SCH ×3 (08:18→16:14)
--- NOTE | 2016-09-17 08:30 | EKG Report ---
Stationary ECG Study [facility] Test Date: 09/17/2016 8:21:19 AM Pat Name: PEBBLES HAM Department: Room: 324 Gender: M Head Bone Grinder: LUDWIG : 1940 Requested by: Cali Payne Order Number: [id number] Reading MD: CALI PAYNE Intervals [place] Rate: 102 P: 66 SD: 169 QRS: 57 QRSD: 80 T: 88 QT: 351 QTc: 410 Interpretive Statements SINUS TACHYCARDIA NONSPECIFIC T-WAVE ABNORMALITY ABNORMAL RHYTHM ECG Electronically Signed On 09-18-16 14:04:59 CDT by CALI PAYNE [email or web address]
[2016-09-17] MEDS: INSULIN NPH/REGULAR 70/30 100 UNIT/ML SUBCUT SCH (09:48)
[2016-09-17] MEDS: GABAPENTIN 600 MG TABLET PO SCH ×2 (09:59→16:14)
[2016-09-17] MEDS: glipiZIDE 10 MG TABLET PO SCH (09:59)
[2016-09-17] MEDS: metFORMIN 500 MG TABLET PO SCH (09:59)
[2016-09-17] MEDS: valACYclovir 500 MG TABLET PO SCH (10:00)
[2016-09-17] MEDS: ATORVASTATIN 10 MG TABLET PO SCH (10:00)
[2016-09-17] MEDS: DOCUSATE SODIUM 100 MG CAPSULE PO SCH (10:00)
[2016-09-17] MEDS: ASPIRIN EC 81 MG TABLET PO SCH (10:01)
[2016-09-17] MEDS: TAMSULOSIN 0.4 MG CAPSULE PO SCH (10:01)
[2016-09-17 16:00] VITALS: BP 143/74
--- NOTE | 2016-09-17 20:21 | Cardiology Progress Note ---
I, Laney Arriaza RN, am scribing for, and in the presence of, Lucio Payne MD 20:21. Assessment and Plan (1) CAD (coronary artery disease) Status: Chronic Assessment and plan: 09/14/2016 initial assessment and plan: Patient is known CAD and some atrial fibrillation. Status post left TKA. Plan/recommendation: Continue home cardiac meds. EKG every morning 3. Watch out for atrial fib or ischemia. I discussed with the patient he is to let me know if he begins to have chest pain or shortness of breath. 09/15/2016: Assessment/plan/recommendation:No chest pain or shortness of breath. Potassium is low. We will replete with KCl 40 mg p.o. now. Recheck potassium and magnesium in a.m. 09/16/2016: Assessment/plan/recommendation: No chest pain or shortness of breath. Less pain is still some pain. His magnesium and potassium remained low. We will give mag sulfate 2 g IV over an hour. Also KCl 40 mg and water or juice p.o. 1. Will recheck a BMP and magnesium in the morning. 09/17/16 Assessment/plan/recommendation: No angina. Potassium and magnesium are now normal. Still significant pain with his left knee. He is going to swing bed today. He will follow with his primary cellular plastics cutter, Dr. Will Jones, as scheduled or sooner if needed. (2) Status post total left knee replacement Status: Acute (3) Dyslipidemia Status: Chronic (4) History of coronary artery bypass graft Status: Chronic (5) Paroxysmal a-fib Status: Chronic Cardiology - PN: Subj Interval history: PRIMARY LINE CREWMAN: DR. WILL JONES POD #3 status post left total knee replacement. Surgical dressing is dry and intact. He is awake and alert. He denies chest pain, shortness of breath, or other overt anginal complaint. He has done well with PT. Only discomfort is related to surgical pain at op site. He is planned for discharge to swing bed today for further rehabilitation and treatment. Hypokalemia and hypomagnesemia are resolved after repletion yesterday, and they are 4.0 and 2.1 respectively. Twelve-lead EKG this morning reveals sinus tachycardia, pulse rate 102 bpm, nonspecific T-wave changes but no acute ST segment changes or other ischemia. BP 120/70. Overall, he is hemodynamically stable Exam (Progress Note) - Constitutional Vitals: Period Temp Pulse Resp BP Sys/Adamson Pulse Ox Last 24 Hr 97.7 F-99.4 F 98-126 18-21 93-138/58-87 93-96 Exam: General appearance: normal weight, no acute distress - Head Head exam: Absent: abrasion, hematoma - Eye Eye exam: Absent: periorbital swelling, laceration to eyelids - Respiratory Respiratory exam: Present: clear to auscultation bilaterally. Absent: accessory muscle use, chest wall tenderness, rhonchi, stridor, wheeze. - Cardiovascular Cardiovascular exam: Present: regular rate and rhythm. Absent: rubs, bradycardia, tachycardia, murmur - GI/Abdominal GI/Abdominal exam: Present: normal bowel sounds, soft. Absent: distended, tenderness, firm - Extremities Exam Extremities exam: Present: other (surgical dressing left knee dry and intact). Absent: edema - Neurological Exam Neurological exam: Present: alert, oriented X3 - Psychiatric Psychiatric exam: Present: normal affect, normal mood - Skin Skin exam: Present: warm, dry absent: Cyanosis, diaphoresis. Result/EKG - Labs CBC & BMP: 09/16/16 05:20 09/17/16 03:46 Lab Results: I have reviewed the past 24 hour labs Labs: Laboratory Results - last 24 hr 09/16/16 09/16/16 09/16/16 11:16 15:46 20:02 Sodium Potassium Chloride Carbon Dioxide Anion Gap BUN Creatinine GFR Calculation BUN/Creatinine Ratio Glucose POC Glucose 242 H 279 H 296 H Calculated Osmolality Calcium Magnesium 09/17/16 09/17/16 03:46 06:55 Sodium 137 Potassium 4.0 Chloride 99 Carbon Dioxide 29 Anion Gap 13.0 BUN 11 Creatinine 1.00 GFR Calculation 84 BUN/Creatinine Ratio 11.00 Glucose 107 H POC Glucose 95 Calculated Osmolality 271.8 L Calcium 8.5 Magnesium 2.1 - EKG EKG results: interpreted by me, no acute changes Specialty Discharge - Follow Up or Referrals Follow up with: Daniel Montanez Jr., MD [Physician] - 10/18/16 9:30 am Vasiliy Jones MD [Physician] - 09/30/16 11:00 am (keep regular schedule) I, Lucio Payne MD, personally performed the services described in this documentation, ascribed by Laney Arriaza RN in my presence, and it is both accurate and complete .
== END 2016-09-17 16:35 | disposition swing bed (61) | DRG 470 ==
LOC: N.SDSINP 05:48 → N.3E 09:41
PROVIDERS: ADMIT Orthopaedic Surgery; ATTEND Orthopaedic Surgery

== ENCOUNTER 2017-01-26 12:00 | Inpatient (IN) ==
[2017-01-21 12:02] LABS: Basophils % 0.8 % (0.0-0.8); Eosinophils # 0.2 10*3/uL (0.0-0.87); Hemoglobin 13.1 GM/DL (14.0-18.0); Immature Granulocytes % 0.4 %; Immature Granulocytes Absolute 0.02 #; Lymphocytes # 1.8 10*3/uL (1.4-4.0); Lymphocytes % 36.4 % (21.2-54.2); Mean Corpuscular HGB Conc 34.5 GM/DL (32-36); Mean Corpuscular Hemoglobin 33 PG (27-34); Mean Platelet Volume 10.9 FL (9.6-12.0); Monocytes # 0.6 10*3/uL (0.11-0.8); Monocytes % 11.3 % (1.7-12.7); Neutrophils # 2.4 10*3/uL (1.4-7.4); Neutrophils % 47.1 % (38.7-73.9); Platelet Count 160 T/CUMM (130-400); Red Cell Distribution Width 14.6 % (9.3-17.3); White Blood Count 5.1 T/CUMM (4-12)
[2017-01-21 12:03] LABS: Apearance,Urine CLEAR (Clear); Bilirubin,Urine Negative (Negative); Blood, Urine Small mg/dL (Negative); Glucose,Urine (UA) Negative (Negative); Hyaline Casts,Urine 2 /LPF (0-3); Ketones,Urine Negative (Negative); Mucus,Urine Occasional /LPF (Occasional); Nitrite,Urine Negative (Negative); Protein,Urine Negative; RBC,Urine <1 /HPF (0-4); Urine Color Yellow (Yellow); Urine Specific Gravity 1.011 (1.001-1.035); Urine Urobilinogen < 2.0 EU/DL (0.2-1.0); WBC,Urine <1 /HPF (0-6)
[2017-01-21 12:21] LABS: PT Patient Result 10.1 SECS; Partial Thromboplastin Time 24.7 SECS (0-40)
[2017-01-21 12:36] LABS: Albumin 3.4 G/DL (3.4-5.0); Bilirubin,Total 0.6 MG/DL (0.2-1.0); Osmolality,Calculated 282.1 MOS/KG (273-304); Potassium 4.3 MMOL/L (3.5-5.1); Total Protein 6.7 G/DL (6.4-8.3)
--- NOTE | 2017-01-21 12:58 | XRay Report ---
XR chest 2V Indication: Respiratory preoperative evaluation Comparison: 03 September 2016 Findings: The heart and mediastinum are stable in size and configuration with cardiac surgery changes. The pulmonary vascularity is normal in caliber. Lung volumes are increased with prominent bronchial markings. No lung infiltrates, effusions, pneumothorax or other abnormality is demonstrated. Impression: Chronic lung and cardiac surgery changes. No acute process or significant change. PROCEDURE INTERPRETED AT [facility] DEPARTMENT OF RADIOLOGY Final Report Signed by: Dr. Wilber Reid
[2017-02-03] MEDS ORDERED: ROPIVACAINE 0.5% 30 ML VIAL ONE (05:58)
[2017-02-03] MEDS ORDERED: VANCOMYCIN INJ 1,000 MG in SODIUM CHLORIDE 0.9% 250 ML IV ONE (06:00)
[2017-02-03] MEDS: LACTATED RINGERS 1,000 ML IV SCH ×3 (06:25→19:36)
[2017-02-03] MEDS ORDERED: SODIUM CHLORIDE 0.9% 100 ML IV ONE (06:31)
[2017-02-03] MEDS ORDERED: ceFAZolin 1,000 MG VIAL ONE (06:31)
[2017-02-03] MEDS ORDERED: VANCOMYCIN 1,000 MG VIAL ONE (06:31)
[2017-02-03] MEDS ORDERED: fentaNYL 100 MCG/2 ML VIAL ONE (06:48)
[2017-02-03] MEDS ORDERED: DEXAMETHASONE 4 MG/1 ML VIAL ONE (07:14)
[2017-02-03] MEDS ORDERED: ROCURONIUM 100 MG/10 ML VIAL IV ONE (07:14)
[2017-02-03] MEDS ORDERED: ONDANSETRON 4 MG/2 ML VIAL ONE (07:14)
[2017-02-03] MEDS ORDERED: LIDOCAINE 2% 5 ML VIAL ONE (07:14)
[2017-02-03] MEDS ORDERED: LABETALOL 100 MG/20 ML VIAL IV ONE (07:14)
[2017-02-03] MEDS ORDERED: GLYCOPYRROLATE 0.4 MG/2 ML VIAL ONE (07:14)
[2017-02-03] MEDS ORDERED: NEOSTIGMINE 10 MG/10 ML VIAL ONE ×2 (07:14→09:23)
--- NOTE | 2017-02-03 07:15 | History and Physical Update ---
History and Physical Update - History and Physical H&P was reviewed, the patient examined and there: are no changes in the patients condition since last H&P was completed.
[2017-02-03] MEDS ORDERED: ONDANSETRON 4 MG/2 ML VIAL IV PRN (07:18)
[2017-02-03] MEDS ORDERED: LACTULOSE 20 GM/30 ML UDCUP PO PRN (07:18)
[2017-02-03] MEDS ORDERED: MAGNESIUM HYDROXIDE SUSP 30 ML UDCUP PO PRN (07:18)
[2017-02-03] MEDS ORDERED: HYDROmorphone 2 MG/1 ML VIAL IV PRN (07:18)
[2017-02-03] MEDS ORDERED: BISACODYL 10 MG SUPP RECTAL PRN (07:18)
[2017-02-03] MEDS ORDERED: NALOXONE 0.4 MG/ML VIAL IV PRN (07:18)
[2017-02-03] MEDS ORDERED: PROMETHAZINE 25 MG/1 ML VIAL IM PRN (07:18)
[2017-02-03] MEDS ORDERED: DEXTROSE 50% 25 GM/50 ML VIAL IV PRN (07:21)
[2017-02-03] MEDS ORDERED: GLUCAGON 1 MG VIAL IM PRN (07:21)
[2017-02-03] MEDS ORDERED: HYDROmorphone PCA 30 MG/30 ML SYRINGE IV SCH (07:30)
--- NOTE | 2017-02-03 09:21 | Anesthesia Post-Op ---
Anesthesia Post OP - Post Ansesthetic Evaluation Patient seen in post op: Yes Resp: within normal limits CV: within normal limits Mental: within normal limits Temp: within normal limits [id number]: within normal limits Nausea and Vomiting: within normal limits Pain: within normal limits
[2017-02-03] MEDS ORDERED: DESFLURANE 1 UNIT/15 MINUTE INH ONE (09:22)
[2017-02-03] MEDS ORDERED: LACTATED RINGERS 1,000 ML IV ONE (09:23)
--- NOTE | 2017-02-03 10:02 | XRay Report ---
History: Postop shoulder surgery Date: 02/03/2017 Study: Right shoulder single view Comparison exam: Chest x-ray January 21, 2017 The patient has undergone right shoulder replacement. The right shoulder prosthesis is well conjugated. There is no fracture or dislocation. There is mild hypertrophic change of the acromioclavicular joint. Surgical leo overlie the regional soft tissues Impression: Generally satisfactory appearance of the right shoulder prosthesis in this single projection PROCEDURE INTERPRETED AT [facility] DEPARTMENT OF RADIOLOGY Final Report Signed by: Dr. Christine Mariee
[2017-02-03] MEDS: INSULIN REGULAR 100 UNIT/ML SUBCUT SCH ×4 (11:05→21:01)
[2017-02-03] MEDS: INSULIN NPH/REGULAR 70/30 100 UNIT/ML SUBCUT SCH (11:07)
[2017-02-03] MEDS: GABAPENTIN 600 MG TABLET PO SCH ×3 (11:07→21:00)
[2017-02-03] MEDS: metFORMIN 500 MG TABLET PO SCH ×2 (11:36→21:00)
[2017-02-03] MEDS: glipiZIDE 10 MG TABLET PO SCH ×2 (11:36→21:01)
[2017-02-03] MEDS: valACYclovir 500 MG TABLET PO SCH (11:36)
[2017-02-03] MEDS: ATORVASTATIN 10 MG TABLET PO SCH (11:37)
[2017-02-03] MEDS: amLODIPine 5 MG TABLET PO SCH (11:37)
[2017-02-03] MEDS: ASPIRIN EC 81 MG TABLET PO SCH (11:37)
[2017-02-03] MEDS ORDERED: TEMAZEPAM 15 MG CAPSULE PO PRN (13:25)
--- NOTE | 2017-02-03 13:25 | Orthopedic Progress Note ---
Orthopedics - Subjective Interval history: Has a good block comfortable postop discussed are not asking about discharge will decide tomorrow Exam - Constitutional Vitals: Period Temp Pulse Resp BP Sys/Adamson Pulse Ox Last 24 Hr 97.9 F-98.4 F 69-96 16-20 129-174/67-100 96-100 Results - Labs CBC & BMP: 01/21/17 11:45 01/21/17 11:45
[2017-02-03] MEDS: ceFAZolin 2,000 MG in PREMIX 1 EACH IV SCH ×2 (14:25→21:03)
--- NOTE | 2017-02-03 17:32 | Operative Note ---
DATE: 02/03/2014 PREOPERATIVE DIAGNOSIS: OSTEOARTHRITIS, RIGHT SHOULDER. POSTOPERATIVE DIAGNOSIS: SAME. OPERATIVE PROCEDURE: Right total shoulder replacement. SURGEON: Daniel Montanez Jr., MD CANCELLATION CLERK: Dr. Justice. ANESTHESIA: General. INDICATIONS: A 76-year-old white male with severe osteoarthritis involving the glenohumeral joint, r ight shoulder. We managed him for quite some time using medications as well as injections. He is no t getting any significant relief now. He is presented with surgical options and presents today for a rthroplasty of the right shoulder. OPERATIVE PROCEDURE: The patient was taken to the operating room, under general anesthetic and with interscalene block in place, positioned in a beach-chair position. He received Ancef preoperatively. The right shoulder and arm were prepped and draped in usual sterile manner. A deltopectoral incisi on was made. The deltoid was split protecting the cephalic vein. The arm was externally rotated and a capsulotomy was made. He had a large ganglion cyst, it was evacuated dorsal to the subscap and ca psule. The subscap and capsule were split in one layer and retention sutures placed. This allowed e xposure to the severe degenerative change in the shoulder. Intramedullary alignment guide was used t o remove the articular surface of the humeral head. The glenoid was exposed and sized for a 48 space r. The glenoid was prepared and then the polyethylene component cemented into place. After the ceme nt hardened, the attention was turned to the humerus where we selected 12 stem with reamings and ulti mately choosing a 48 x 50 eccentric head. Trial reductions provided good stability and the trial hum erus was removed. A 12 [place] humeral prosthesis was inserted and the eccentric head secured and t hen relocated. The wound was then irrigated. The subscap layer closed with #2 Ti-Cron interrupted. The deltopectoral split was reapproximated with 0-Vicryl, 2-0 Vicryl for the subcutaneous layer and leo for skin. Sterile dressing applied. He was placed in an abduction pillow, sling, taken to r ecovery room in stable condition.
--- NOTE | 2017-02-03 18:06 | Cardiology Consult Note ---
Erick Barker April RN, am scribing for, and in the presence of, Chaya Butts MD 18:06. Assessment and Plan - Time spent with patient Time spent with patient: Greater than 30 minutes (Assessment, planning, documentation, medication review) (1) Status post shoulder surgery Status: Acute Current Visit: Yes (2) HTN (hypertension) Status: Chronic Current Visit: Yes (3) History of coronary artery bypass graft Status: Chronic Current Visit: Yes (4) Paroxysmal a-fib Status: Chronic Current Visit: No (5) CAD (coronary artery disease) Status: Chronic Current Visit: No History of Present Illness - Data of Consult Patient: known to practice within the last 3 years Consult date: 02/03/17 Requesting Physician: Daniel Montanez Jr. - Consult Narrative Reason for consult: Follow postoperatively History of present illness: Reinsurance Clerk: Dr. Jones Mr. Costa is a 76 year old male who is routinely followed by Dr. Jones with a history of CAD, IDDM, hypertension, and GERD. Dr. Jones next he had postop atrial fibrillation at one time and had to be converted with IV amiodarone. Stress test in Dr. Jones's office June 01, 2016 was normal and suggestive of low risk for future cardiovascular events. He underwent CABG 08/22/2008 with ANAND to LAD and saphenous vein graft obtuse marginal. Heart catheterization done on January 13, 2010 showed all grafts to be widely patent and found no significant disease. Other surgical history includes bilateral knee replacements, bilateral cataract, and cholecystectomy. He denies any known family history. He reports he quit smoking about [address] Jones last saw the patient in the office January 11, 2017 and he felt he would be low risk for krys-/post operative cardiac event. He was admitted today for right shoulder surgery with Dr. Tarik Dubose. We are seeing him postoperatively. He denies any chest pain, shortness of breath, palpitations, or dizziness. His heart rhythm sounds regular to auscultation. Vital signs have been stable post surgery, currently 129/72. Home medications have been restarted. O2 sat is 99%. Assessment/plan: 1. Status post shoulder surgery-he underwent right shoulder surgery February 03, Dr. Tarik Patton is following. 2. Hypertension-home medications been restarted. His blood pressures been stable. We will continue to monitor. 3. Coronary artery disease-clinically stable. History of coronary artery bypass graft. 4. Paroxysmal A. fib-heart rate sounds regular to auscultation at this time. We will get an EKG in the morning. CC: Daniel Montanez Jr., MD - Home Medications and Allergies Home Medications: Home Medications Medication Instructions Recorded Confirmed Type Aspirin [Ecotrin] 81 mg PO DAILY 12/11/15 02/03/17 History Atorvastatin [Lipitor] 10 mg PO DAILY 12/11/15 02/03/17 History Gabapentin 600 mg PO TID 12/11/15 02/03/17 History Latanoprost [Latanoprost 0.005 % 1 drop LEFT EYE BEDTIME 12/11/15 02/03/17 History Oph Soln] Valacyclovir HCl [Valacyclovir] 500 mg PO DAILY 12/11/15 02/03/17 History glipiZIDE [Glipizide] 10 mg PO BID 12/11/15 02/03/17 History Insulin NPH Hum/Reg Insulin Hm 30 unit SUBCUT QAM 09/14/16 02/03/17 History [NovoLIN 70/30] Insulin NPH Hum/Reg Insulin Hm 40 unit SUBCUT QPM PRN 09/14/16 02/03/17 History [NovoLIN 70/30] amLODIPine [Norvasc] 5 mg PO DAILY 01/03/17 02/03/17 History Tamsulosin [Flomax] 0.4 mg PO BEDTIME 02/03/17 02/03/17 History Allergies/Adverse Reactions: Allergies Allergy/AdvReac Type Severity Reaction Status Date / Time No Known Allergies Allergy Verified 01/21/17 12:19 - Constitutional Constitutional: Present: as per HPI - Cardiovascular Cardiovascular: Absent: chest pain at rest, chest pain with activity, dyspnea, dyspnea on exertion, edema, radiating jaw, neck or arm pain, lightheadedness, orthopnea, palpitations - Respiratory Respiratory: Absent: cough, dyspnea, hemoptysis, dyspnea on exertion, wheezing - Gastrointestinal Gastrointestinal: Present: diarrhea. Absent: abdominal pain, constipation, hematemesis, hematochezia, melena, nausea, vomiting - Genitourinary Genitourinary: Absent: dysuria, hematuria - Musculoskeletal Musculoskeletal: Present: limited range of motion, muscle weakness - Neurological Neurological: Present: abnormal gait. Absent: confusion, dizziness, frequent falls - Hematologic/Lymphatic Hematologic/Lymphatic: Present: easy bruising. Absent: easy bleeding Medical,Surgical,& Family Hx - Medical History Cardio: History of: Cardiac Dysrhythmia (PAfib), CAD (CABG in 2008), Hypertension Neurology: History of: Peripheral Neuropathy HEENT: History of: Eye Problem (LEFT), Dental Problems (FULL SET) Endocrine: History of: Diabetes Mellitus (IDDM), Dyslipidemia Rheumatology: History of;: Rheumatoid Arthritis Respiratory: History of: Respiratory Problems (FLU VAC- YES; PNEU VAC- YES) Genitourinary: History of: Kidney Stones, Prostate Problems Gastrointestinal: History of: GERD, GI Problems (ulcers) Musculoskeletal: History of: Back/Neck Problems - Surgical History Cardiac Surgeries: Sugical HX of: Cardiac Catheterization (most recent 2009), Cardiac Surgery (CABG 2008) HEENT Surgeries: Surgical HX of: Eye Surgery (CATARACT SURGERY BILATERAL) Abdominal Surgeries: Surgical HX of: Cholecystectomy Orthopedic Surgeries: Surgical HX of;: Orthopedic Surgery (r tib/fib), Spinal Surgery (back), Total Knee Replacement (RT KNEE 06/29, left 09/27) - Family History Family History: Reports;: Family Diabetes (mother), Family Heart Disease, Family Hypertension (mother) - Social History Smoking Status: Former smoker (Quit 40 years ago) Have you smoked in the last 12 months: No Frequency of Alcohol Use: None Type of Drug Use: None Lives With:: Alone Functional capacity: independent ambulation Physical Examination Vital Signs Temp Pulse Resp BP Pulse Ox 98.4 F 73 20 174/100 98 02/03/17 06:02/03/17 06:02/03/17 06:17 02/03/17 06:02/03/17 06:17 General: Present: Appears Well, No Apparent Distress HEENT: Present: PERRL, Mucus Membranes Moist Neck: Present: Supple Neck, Midline Trachea, Bruit (Left) Cardiac: Present: Reg Rate and Rhythm, No Murmur Lungs: Present: Normal Breath Sounds, No Wheeze, Rales, Rhonchi Neuro: Absent: Resting Tremor, Essential Tremor Abdomen: Present: Soft, Active Bowel Sounds, Non-Tender. Absent: Distended Skin: Absent: Rash, Suspicious Lesions Extremities: Present: No Edema, Normal Upper Extr. Pulses, Normal Lower Extr. Pulses, Other (Right shoulder in sling) Result/EKG - Labs CBC & BMP: 01/21/17 11:45 01/21/17 11:45 Lab Results: I have reviewed the past 24 hour labs Labs: Laboratory Results - last 24 hr 02/03/17 02/03/17 02/03/17 06:14 06:14 09:45 POC Glucose 133 H 245 H Blood Type O NEGATIVE Antibody Screen Negative IBenjamín Jennifer, MD, personally performed the services described in this documentation, ascribed by Radha Suarez RN in my presence, and it is both accurate and complete [id number] .
[2017-02-03] MEDS ORDERED: INSULIN NPH/REGULAR 70/30 100 UNIT/ML SUBCUT SCH (19:00)
[2017-02-03] MEDS ORDERED: LISINOPRIL/HCTZ 20-12.5 MG TABLET PO SCH (21:00)
[2017-02-03] MEDS ORDERED: LATANOPROST 0.005% OPH SOLN 2.5 ML BOTTLE LEFT EYE SCH (21:00)
[2017-02-04] MEDS: LACTATED RINGERS 1,000 ML IV SCH (03:18)
[2017-02-04 05:53] LABS: Basophils # 0.1 10*3/uL (0.0-0.2); Basophils % 0.5 % (0.0-0.8); Eosinophils # 0.1 10*3/uL (0.0-0.87); Eosinophils % 0.6 % (0.00-10.9); Hemoglobin 12.1 GM/DL (14.0-18.0); Immature Granulocytes % 0.4 %; Immature Granulocytes Absolute 0.04 #; Lymphocytes # 1.8 10*3/uL (1.4-4.0); Mean Corpuscular HGB Conc 35.6 GM/DL (32-36); Mean Corpuscular Hemoglobin 33 PG (27-34); Mean Corpuscular Volume 93.7 FL (87-102); Mean Platelet Volume 11.1 FL (9.6-12.0); Monocytes # 1.8 10*3/uL (0.11-0.8); Monocytes % 18.7 % (1.7-12.7); Neutrophils # 5.9 10*3/uL (1.4-7.4); Neutrophils % 60.8 % (38.7-73.9); Platelet Count 226 T/CUMM (130-400); Red Blood Count 3.63 MC/CUMM (3.8-5.5); Red Cell Distribution Width 13.7 % (9.3-17.3); White Blood Count 9.7 T/CUMM (4-12)
[2017-02-04 06:15] LABS: Eosinophils 2 % (0-10); Giant Platelets Few; Hypochromasia 1+; Lymphocytes 20 % (20-55); Ovalocytes Slight; Platelet Estimate Adequate; Segmented Neutrophils 63 % (50-85); Total Cells Counted 100
--- NOTE | 2017-02-04 07:10 | EKG Report ---
Stationary ECG Study [facility] Test Date: 02/04/2017 7:09:34 AM Pat Name: PEBBLES HAM Department: Room: 325 Gender: M [employer] Director: : 1940 Requested by: Pippa Carvalho Order Number: [id number] Reading MD: LAYO RODRIGUES Intervals [place] Rate: 71 P: 66 OK: 138 QRS: 65 QRSD: 78 T: 121 QT: 406 QTc: 429 Interpretive Statements SINUS RHYTHM NONSPECIFIC T-WAVE ABNORMALITY Electronically Signed On 02-04-17 19:02:13 CDT by LAYO RODRIGUES [email or web address]
[2017-02-04] MEDS: INSULIN NPH/REGULAR 70/30 100 UNIT/ML SUBCUT SCH (08:26)
[2017-02-04] MEDS: INSULIN REGULAR 100 UNIT/ML SUBCUT SCH ×2 (08:26→13:12)
[2017-02-04] MEDS: GABAPENTIN 600 MG TABLET PO SCH (08:26)
[2017-02-04] MEDS: metFORMIN 500 MG TABLET PO SCH (08:27)
[2017-02-04] MEDS: amLODIPine 5 MG TABLET PO SCH (08:27)
[2017-02-04] MEDS: ATORVASTATIN 10 MG TABLET PO SCH (08:27)
[2017-02-04] MEDS: ASPIRIN EC 81 MG TABLET PO SCH (08:27)
[2017-02-04] MEDS: valACYclovir 500 MG TABLET PO SCH (08:27)
[2017-02-04] MEDS: glipiZIDE 10 MG TABLET PO SCH (08:27)
--- NOTE | 2017-02-04 08:49 | Orthopedic Progress Note ---
Orthopedics - Subjective Interval history: Comfortable doing well wiggling finger sensibility intact will stop ORDER DISPATCHER wants to go home this afternoon if progressing well and tolerating p.o. pain medication he can do that instructed. Exam - Constitutional Vitals: Period Temp Pulse Resp BP Sys/Adamson Pulse Ox Last 24 Hr 97.7 F-98.4 F 69-96 16-20 100-161/65-88 94-100 Results - Labs CBC & BMP: 02/04/17 04:46 01/21/17 11:45 Specialty Discharge - Follow Up or Referrals Follow up with: Daniel Montanez Jr., MD [Physician] -
--- NOTE | 2017-02-04 08:51 | Discharge Summary ---
Hospital Course - Hospital Course Hospital Course: Admitted for elective right total shoulder discharged home Diagnosis - Discharge Diagnosis (1) Osteoarthritis of right shoulder Status: Acute Specialty Discharge - Follow Up or Referrals Follow up with: Daniel Montanez Jr., MD [Physician] - Discharge Plan - Discharge Data Disposition: Disch To Home/Self Care Condition at Discharge: Stable Discharge Diet: advance to your usual diet Activity: no lifting (Arm sling for comfort may remove remove for hygiene purposes no active shoulder motion) Weight Bearing at Discharge: weight bear as tolerated Driving: not until seen by doctor - Discharge Medications New HYDROcodone/ACETAMIN 7.5-325 [[place] 7.5-325] 1 tablet PO Q4H PRN #30 tablet PRN Reason: Pain Moderate (4-7) Continue Valacyclovir HCl [Valacyclovir] 500 mg PO DAILY Gabapentin 600 mg PO TID glipiZIDE [Glipizide] 10 mg PO BID Latanoprost [Latanoprost 0.005 % Oph Soln] 1 drop LEFT EYE BEDTIME Atorvastatin [Lipitor] 10 mg PO DAILY Aspirin [Ecotrin] 81 mg PO DAILY Insulin NPH Hum/Reg Insulin Hm [NovoLIN 70/30] 40 unit SUBCUT QPM PRN PRN Reason: Glucose Management Insulin NPH Hum/Reg Insulin Hm [NovoLIN 70/30] 30 unit SUBCUT QAM amLODIPine [Norvasc] 5 mg PO DAILY Tamsulosin [Flomax] 0.4 mg PO BEDTIME - Follow Up or Referral Follow Up: Daniel Montanez Jr., MD [Physician] - - Forms/Instructions Additional Discharge Instructions: Discharge to home discharge medications continue home meds [place] for pain arm sling for comfort and protection may remove daily for gentle elbow range of motion and for hygiene purposes daily dry dressing. Follow-up 10 February 15 for staple removal Exam - Constitutional Vitals: Period Temp Pulse Resp BP Sys/Adamson Pulse Ox Last 24 Hr 97.7 F-98.4 F 69-96 16-20 100-161/65-88 94-100 Discharge Results Labs on day of discharge: Labs from last 24 hours 02/04/17 02/04/17 02/03/17 06:37 04:46 20:45 WBC 9.7 RBC 3.63 L Hgb 12.1 L Hct 34.0 L MCV 93.7 MCH 33 MCHC 35.6 RDW 13.7 Plt Count 226 MPV 11.1 Neut % (Auto) 60.8 Lymph % (Auto) 19.0 L [place] % (Auto) 18.7 H Eos % (Auto) 0.6 Baso % (Auto) 0.5 Neut # (Auto) 5.9 Lymph # (Auto) 1.8 [place] # (Auto) 1.8 H Eos # (Auto) 0.1 Baso # (Auto) 0.1 Total Counted 100 Immature Gran % 0.4 Nucleated RBC % 0.0 Immature Gran # 0.04 Segmented Neutrophils 63 Lymphocytes 20 Monocytes 15 Eosinophils 2 Nucleated RBCs # 0.00 Platelet Estimate Adequate Giant Platelets Few Immature Plt Fraction 0.0 Hypochromasia 1+ Ovalocytes Slight POC Glucose 170 H 318 H 02/03/17 02/03/17 02/03/17 17:14 10:47 09:45 WBC RBC Hgb Hct MCV MCH MCHC RDW Plt Count MPV Neut % (Auto) Lymph % (Auto) [place] % (Auto) Eos % (Auto) Baso % (Auto) Neut # (Auto) Lymph # (Auto) [place] # (Auto) Eos # (Auto) Baso # (Auto) Total Counted Immature Gran % Nucleated RBC % Immature Gran # Segmented Neutrophils Lymphocytes Monocytes Eosinophils Nucleated RBCs # Platelet Estimate Giant Platelets Immature Plt Fraction Hypochromasia Ovalocytes POC Glucose 305 H 258 H 245 H DS: Provider Date of admission: 02/03/17 05:35 Primary care physician: Miguel Jones M.D. Attending physician on admission: Daniel Montanez Jr., MD Consults: 02/03/17 07:18 Consult to Physical Therapy [CONS] Routine Reason for Physical Therapy: Evaluate and Treat 02/03/17 07:20 Consult to Case Mgmt/Social Srvs [CONS] Routine Reason for Case Mgmt/Social Srvs: Home Health Rehab Equipment Consult to Occupational Therapy [CONS] Routine Reason for Occupational Therapy: Evaluate and Treat 02/03/17 10:17 Consult to Physician [CONS] Routine Comment: Consulting Provider: Vasiliy Jones Consulting Provider Notified: Yes When should Consulting Provider be notified: Now Person Notified: catrina lowry Date Notified: 02/03/17 Time Notified: 10:19 Discharging clinician: Daniel Montanez Jr., MD
[2017-02-04 11:24] VITALS: BP 92/46
--- NOTE | 2017-02-04 18:22 | Pathology Report from [facility] ---
[facility] [place]ESSION # : [id number] PATIENT NAME : Trudy Costa ORDERING DR : MEGHA SALMON JR, MD CLINICAL HX: Right shoulder osteoarthritis POST-OP DX: Same SPECIMEN INFO: Right shoulder and tissue GROSS DESCRIPTION: The specimen is received in formalin labeled with the patients name and consists of femoral head measuring 3.8 x 4.2 cm x up to 0.5 cm. The articular surface is smooth, bruce with area measuring 2.5 x 2.0 cm of eburnation. Also received in the container are two fragments of hyperemic bear- bruce bone together measuring 2.5 x 3.0 cm. A underwriting sales representative section submitted in one cassette following decalcification. DIAGNOSIS FOR TRUDY COSTA: RIGHT SHOULDER BONE AND TISSUE, REPLACEMENT: Osteoarthritis. COLLECTED DATE: 02/03/2017 [facility] [place] REPORT DATE: 02/04/2017 ELECTRONICALLY SIGNED BY: Tod Muhammad M.D. 02/04/2017 - 10:24:52 MTDD
== END 2017-02-04 14:58 | disposition home or self-care (01) | DRG 483 ==
LOC: N.SDSINP 02-03 05:35 → N.3E 02-03 09:54
PROVIDERS: ADMIT Orthopaedic Surgery; ATTEND Orthopaedic Surgery

== ENCOUNTER 2017-11-30 16:59 | Inpatient (IN) ==
[2017-11-30] MEDS ORDERED: ASPIRIN 325 MG TABLET PO STA (17:24)
[2017-11-30] MEDS ORDERED: ONDANSETRON 4 MG/2 ML VIAL IV STA (17:24)
[2017-11-30] MEDS ORDERED: ENOXAPARIN 100 MG/ML SYRINGE SUBCUT STA (17:24)
[2017-11-30] MEDS ORDERED: SODIUM CHLORIDE 0.9% 1,000 ML IV STA (17:24)
[2017-11-30] MEDS ORDERED: NITROGLYCERIN 2% OINT 1 INCH/GM PACK TOP STA (17:24)
[2017-11-30] MEDS ORDERED: MORPHINE 4 MG/1 ML VIAL IV STA ×2 (17:24→18:43)
[2017-11-30] MEDS ORDERED: MORPHINE 4 MG/1 ML VIAL ONE (17:25)
[2017-11-30] MEDS ORDERED: ENOXAPARIN 100 MG/ML SYRINGE SUBCUT ONE (17:25)
[2017-11-30 18:07] LABS: Basophils % 0.5 % (0.0-0.8); Eosinophils # 0.3 10*3/uL (0.0-0.87); Eosinophils % 3.3 % (0.00-10.9); Hematocrit 34.9 VOL% (42.0-52.0); Hemoglobin 11.8 GM/DL (14.0-18.0); Immature Granulocytes % 0.5 %; Immature Granulocytes Absolute 0.04 #; Lymphocytes # 2.3 10*3/uL (1.4-4.0); Lymphocytes % 27.9 % (21.2-54.2); Mean Corpuscular HGB Conc 33.8 GM/DL (32-36); Mean Corpuscular Hemoglobin 31 PG (27-34); Mean Corpuscular Volume 92.6 FL (87-102); Mean Platelet Volume 10.4 FL (9.6-12.0); Monocytes # 0.6 10*3/uL (0.11-0.8); Monocytes % 7.8 % (1.7-12.7); Platelet Count 166 T/CUMM (130-400); Red Blood Count 3.77 MC/CUMM (3.8-5.5); Red Cell Distribution Width 13.3 % (9.3-17.3); White Blood Count 8.2 T/CUMM (4-12)
[2017-11-30 18:26] LABS: Bilirubin,Total 0.4 MG/DL (0.2-1.0); Calcium 7.5 MG/DL (8.5-10.1); Osmolality,Calculated 281.5 MOS/KG (273-304); Total Protein 6.2 G/DL (6.4-8.3)
[2017-11-30 18:31] LABS: PT Patient Result 10.7 SECS; Partial Thromboplastin Time 25.9 SECS (0-40)
[2017-11-30] MEDS ORDERED: ONDANSETRON 4 MG/2 ML VIAL IV PRN (19:49)
[2017-11-30] MEDS ORDERED: DEXTROSE 50% 25 GM/50 ML VIAL IV PRN (19:56)
[2017-11-30] MEDS ORDERED: GLUCAGON 1 MG VIAL IM PRN (19:56)
[2017-11-30] MEDS ORDERED: ENOXAPARIN 40 MG/0.4 ML SYRINGE SUBCUT SCH (20:00)
[2017-11-30] MEDS ORDERED: KETOROLAC 15 MG/1 ML VIAL IV PRN (20:01)
[2017-11-30] MEDS ORDERED: KETOROLAC 15 MG/1 ML VIAL IV ONE (20:02)
[2017-11-30] MEDS ORDERED: MORPHINE 4 MG/1 ML VIAL IV PRN (20:03)
[2017-11-30] MEDS: glipiZIDE 10 MG TABLET PO SCH (22:23)
[2017-11-30] MEDS: TAMSULOSIN 0.4 MG CAPSULE PO SCH (22:23)
[2017-11-30] MEDS: INSULIN LISPRO 100 UNIT/ML SUBCUT SCH (22:24)
[2017-11-30] MEDS ORDERED: INSULIN NPH/REGULAR 70/30 100 UNIT/ML SUBCUT SCH (22:30)
[2017-11-30] MEDS: LATANOPROST 0.005% OPH SOLN 2.5 ML BOTTLE LEFT EYE SCH (22:51)
[2017-11-30] MEDS: SODIUM CHLORIDE 0.9% 1,000 ML IV SCH (23:54)
[2017-12-01] MEDS ORDERED: ZALEPLON 5 MG CAPSULE PO PRN (01:46)
[2017-12-01 05:47] LABS: Basophils % 0.5 % (0.0-0.8); Eosinophils # 0.3 10*3/uL (0.0-0.87); Eosinophils % 4.1 % (0.00-10.9); Hematocrit 31.7 VOL% (42.0-52.0); Hemoglobin 11.3 GM/DL (14.0-18.0); Immature Granulocytes % 0.5 %; Immature Granulocytes Absolute 0.03 #; Lymphocytes # 1.9 10*3/uL (1.4-4.0); Lymphocytes % 31.1 % (21.2-54.2); Mean Corpuscular HGB Conc 35.6 GM/DL (32-36); Mean Corpuscular Hemoglobin 32 PG (27-34); Mean Corpuscular Volume 88.8 FL (87-102); Mean Platelet Volume 10.8 FL (9.6-12.0); Monocytes # 0.5 10*3/uL (0.11-0.8); Monocytes % 7.9 % (1.7-12.7); Neutrophils # 3.5 10*3/uL (1.4-7.4); Neutrophils % 55.9 % (38.7-73.9); Platelet Count 138 T/CUMM (130-400); Red Blood Count 3.57 MC/CUMM (3.8-5.5); Red Cell Distribution Width 13.3 % (9.3-17.3); White Blood Count 6.2 T/CUMM (4-12)
[2017-12-01 06:17] LABS: Calcium 7.6 MG/DL (8.5-10.1); Osmolality,Calculated 288.4 MOS/KG (273-304); Potassium 3.7 MMOL/L (3.5-5.1); Risk Ratio 3.19; VLDL CHOLESTEROL 44.8 MG/DL
[2017-12-01] MEDS ORDERED: LISINOPRIL/HCTZ 20-12.5 MG TABLET PO SCH (09:00)
[2017-12-01] MEDS: PANTOPRAZOLE 40 MG TABLET PO SCH (09:05)
[2017-12-01] MEDS: glipiZIDE 10 MG TABLET PO SCH ×2 (09:05→21:28)
[2017-12-01] MEDS: ATORVASTATIN 10 MG TABLET PO SCH (09:05)
[2017-12-01] MEDS: valACYclovir 500 MG TABLET PO SCH (09:05)
[2017-12-01] MEDS: LIDOCAINE 5% PATCH TRANSDERM SCH (09:06)
[2017-12-01] MEDS: MEGESTROL 400 MG/10 ML UDCUP PO SCH (09:10)
[2017-12-01] MEDS: INSULIN NPH/REGULAR 70/30 100 UNIT/ML SUBCUT SCH (09:18)
[2017-12-01] MEDS: INSULIN LISPRO 100 UNIT/ML SUBCUT SCH ×4 (09:18→21:17)
[2017-12-01 10:39] LABS: Apearance,Urine CLEAR (Clear); Bilirubin,Urine Negative (Negative); Blood, Urine Negative (Negative); Glucose,Urine (UA) 50 mg/dL (Negative); Ketones,Urine Negative (Negative); Mucus,Urine Occasional /LPF (Occasional); Nitrite,Urine Negative (Negative); Protein,Urine Negative; RBC,Urine <1 /HPF (0-4); Squamous Epithelial Cell,Urine Occasional /HPF (0-10); Urine Color Yellow (Yellow); Urine Specific Gravity 1.033 (1.001-1.035); Urine Urobilinogen < 2.0 EU/DL (0.2-1.0); WBC,Urine <1 /HPF (0-6)
[2017-12-01 14:46] LABS: ABG Base Excess -2.9 MMOL/L (-2.5-2.5); ABG HCO3 20.4 MMOL/L (20-26); ABG Oxygen Saturation 96.6 % (95-100); ABG PCO2 30.9 MM HG (35-48); ABG PH 7.437 (7.35-7.45); ABG PO2 95.4 MM HG (80-95); ABG TCO2 21.3 MMOL/L (23-27)
[2017-12-01] MEDS ORDERED: INSULIN NPH/REGULAR 70/30 100 UNIT/ML SUBCUT SCH (17:00)
[2017-12-01] MEDS: SODIUM CHLORIDE 0.9% 1,000 ML IV SCH (18:09)
[2017-12-01] MEDS ORDERED: ASPIRIN EC 81 MG TABLET PO SCH (19:00)
[2017-12-01] MEDS ORDERED: ENOXAPARIN 40 MG/0.4 ML SYRINGE SUBCUT SCH (21:00)
[2017-12-01] MEDS: TAMSULOSIN 0.4 MG CAPSULE PO SCH (21:16)
[2017-12-01] MEDS: LATANOPROST 0.005% OPH SOLN 2.5 ML BOTTLE LEFT EYE SCH (21:23)
[2017-12-01] MEDS: NEOMYCIN/POLYMYXIN/BACITRACIN OINT 0.9 GM PACK TOP SCH (21:28)
[2017-12-02] MEDS: SODIUM CHLORIDE 0.9% 1,000 ML IV SCH (06:53)
[2017-12-02] MEDS: INSULIN NPH/REGULAR 70/30 100 UNIT/ML SUBCUT SCH (09:24)
[2017-12-02] MEDS: glipiZIDE 10 MG TABLET PO SCH (09:25)
[2017-12-02] MEDS: LIDOCAINE 5% PATCH TRANSDERM SCH (09:25)
[2017-12-02] MEDS: MEGESTROL 400 MG/10 ML UDCUP PO SCH (09:27)
[2017-12-02] MEDS: NEOMYCIN/POLYMYXIN/BACITRACIN OINT 0.9 GM PACK TOP SCH (09:28)
[2017-12-02] MEDS: PANTOPRAZOLE 40 MG TABLET PO SCH (09:28)
[2017-12-02] MEDS: ATORVASTATIN 10 MG TABLET PO SCH (09:28)
[2017-12-02] MEDS: valACYclovir 500 MG TABLET PO SCH (09:33)
[2017-12-02] MEDS: INSULIN LISPRO 100 UNIT/ML SUBCUT SCH ×2 (09:37→12:06)
[2017-12-02] MEDS ORDERED: POLYETHYLENE GLYCOL POWDER 17 GM PACK PO ONE (10:37)
[2017-12-02 11:15] VITALS: BP 114/67
== END 2017-12-02 13:34 | disposition home or self-care (01) | DRG 312 ==
LOC: EDUNIT# → EDBD → N.ED 16:59 → N.EDINP 16:59 → OBSVTOIN 19:19 → INTOOBSV 19:19 → N.TELES 19:45
PROVIDERS: ADMIT Internal Medicine; ATTEND Internal Medicine